=== PATIENT | female | born 1930 | race Two or more races ===

== ENCOUNTER 2016-12-10 12:46 | Inpatient (IN) | payer MEDICARE, OTHER ==
[~2016-12-10] VITALS: Ht 144.8 cm; Wt 59.9 kg
[2016-12-10] MEDS ORDERED: LEXAPRO10 MG ORAL ×2 (13:04→20:51)
[2016-12-10] MEDS ORDERED: LAMICTAL25 MG ORAL ×2 (13:04→20:28)
[2016-12-10] MEDS ORDERED: NORVASC5 MG ORAL (13:04)
[2016-12-10] MEDS ORDERED: FOLIC ACID1 MG ORAL (13:04)
[2016-12-10] MEDS ORDERED: PENLAC6.6 M1 TP (13:04)
[2016-12-10] MEDS ORDERED: LINZESS145 MCG PO (13:06)
[2016-12-10] MEDS ORDERED: PATADAY2.5 ML OP ×2 (13:06→20:55)
[2016-12-10] MEDS ORDERED: MOBIC7.5 MG ORAL (13:06)
[2016-12-10] MEDS ORDERED: NAMENDA XR14 MG PO (13:06)
[2016-12-10] MEDS ORDERED: METOPROLOL TART25 MG ORAL (13:09)
[2016-12-10] MEDS ORDERED: TRAZODONE HCL50 MG ORAL (13:09)
[2016-12-10] MEDS ORDERED: PRAVACHOL20 MG ORAL (13:09)
[2016-12-10] MEDS ORDERED: VITAMIN D350000 UNIT PO (13:09)
[2016-12-10] MEDS ORDERED: PEPCID20 MG ORAL (13:09)
[2016-12-10 13:56] LABS: BASOPHILS % (AUTO) 0.6 % (0.0-2.0); EOSINOPHILS % (AUTO) 0.7 % (0.0-3.0); LYMPHOCYTES % (AUTO) 28.1 % (20.0-45.0); MEAN CORPUSCULAR HEMOGLOBIN 30.2 PG (27.0-31.0); MEAN CORPUSCULAR HGB CONC 33.5 G/DL (32.0-36.0); MEAN CORPUSCULAR VOLUME 90 FL (80-99); MEAN PLATELET VOLUME 9.3 FL (6.5-10.1); MONOCYTES % (AUTO) 6.9 % (1.0-10.0); NEUTROPHILS % (AUTO) 63.6 % (45.0-75.0); PLATELET COUNT 210 K/UL (150-450); RED BLOOD COUNT 5.47 M/UL (4.70-6.10); RED CELL DISTRIBUTION WIDTH 12.2 % (11.6-14.8); WHITE BLOOD COUNT 7.2 K/UL (4.8-10.8)
[2016-12-10 14:12] LABS: ALANINE AMINOTRANSFERASE 21 U/L (3-33); ALBUMIN/GLOBULIN RATIO 1.7 (1.0-2.7); ANION GAP 18 (5-15); ASPARTATE AMINO TRANSFERASE 34 U/L (5-40); CALCIUM 10.1 mg/dL (8.6-10.2); CARBON DIOXIDE 25 mEQ/L (20-30); CHLORIDE 96 mEQ/L (98-107); CREATININE 0.9 mg/dL (0.5-0.9); HEMOLYSIS 14; LIPASE 36 U/L (< 60); POTASSIUM 3.8 mEQ/L (3.4-4.9); SODIUM 139 mEQ/L (135-145); TOTAL PROTEIN 7.4 g/dL (6.6-8.7); TROPONIN I < 0.30 ng/mL (<=0.30)
[2016-12-10 14:13] LABS: INR 0.9 (0.9-1.1); PROTHROMBIN TIME 9.8 SEC (9.30-11.50)
[2016-12-10 14:22] LABS: CKMB 2.9 ng/mL (< 3.8)
--- NOTE | 2016-12-10 14:34 | Diagnostic Imaging Report ---
Indication: PAIN, nausea, vomiting Technique: Spiral acquisitions obtained through the abdomen and pelvis. No oral contrast utilized, per emergency room physician request No IV contrast utilized, Per referring physician request. Multiplanar reconstructions were generated. Total dose length product 680 mGycm. CTDIvol(s) 14 mGy. Dose reduction achieved using automated exposure control Comparison: None Findings: Normal appendix. There is colonic diverticulosis. No evidence of diverticulitis. No small bowel distention. No free or loculated intraperitoneal air or fluid. There are multiple small fat-containing ventral hernias in the midline. There is evidence of prior surgery at the gastroesophageal junction. There is a hiatal hernia and probably evidence of fundoplication. The stomach and duodenum are otherwise unremarkable. Lack of IV contrast limits assessment of the solid organs. The gallbladder is not demonstrated, presumed surgically absent. There is dilatation of the extrahepatic bile ducts, common hepatic duct measuring up to 14 mm in diameter. There is central intrahepatic biliary ductal dilatation. No downstream obstructive lesion is demonstrated, however. The pancreas is mildly atrophic. No focal abnormalities. The left adrenal is diffusely bulky without definite discrete lesion. The right adrenal is unremarkable. The right kidney is unremarkable. No evidence of stone or hydronephrosis. The left kidney demonstrates multiple large cysts. The bladder is mildly distended. No pelvic mass or adenopathy. No retroperitoneal or mesenteric mass or adenopathy. The uterus demonstrates some peripheral calcification, likely old degenerated exophytic fibroids. The lung bases demonstrate bilateral atelectatic changes. The heart is upper limits of normal in size. The bones demonstrate degenerative spondylosis changes as well as lumbar levoscoliotic deformity. There is surgical hardware in the lower lumbosacral spine. Impression: No definite acute process Large hiatal hernia, evidence of prior gastroesophageal surgery, possibly a fundoplication procedure. Correlate with surgical history Dilated extrahepatic bile duct. No definite downstream obstructive lesion demonstrated; suspect related to age and postcholecystectomy state. However, correlation with liver function tests is recommended, with consideration for MRCP for further evaluation if clinically indicated. Diverticulosis. No evidence of diverticulitis Other findings as noted, including evidence of prior lumbar spine fusion surgery, degenerative spondylosis, lumbar scoliosis, bilateral basilar pulmonary parenchymal atelectatic changes, left renal cysts, probable old calcified uterine fibroids The CT scanner at [facility] is accredited by the [employer] and the scans are performed using protocols designed to limit radiation exposure to as low as reasonably achievable to attain images of sufficient resolution adequate for diagnostic evaluation.
--- NOTE | 2016-12-10 14:49 | Emergency Room Report ---
History of Present Illness General Chief Complaint: Generalized Weakness Source: Patient, Medical Record Present Illness HPI Patient presents emergency department today complaining of acute abdominal pain. Patient states that she develop acute onset abdominal discomfort with nausea vomiting or last few days. She's been able to tolerate by mouth. Patient currently stays at a group home. Patient's primary care physician is Dr. Santos. Patient states that she has had severe injuries in the past. Although she does not have a history of bowel traction. She denies any dysuria urinary frequency. No other complaints are noted.No other modifying factors. No other associated signs and symptoms. No other complaints were noted. Allergies: Coded Allergies: No Known Allergies (Unverified , 12/10/16) Patient History Past Medical History: HTN, other - Stomach surgery PSxH Narrative abdominal surgery Social History: Denies: alcohol use, drug use, smoking Social History Narrative stays at a group home Reviewed Nursing Documentation: PMH: Agreed, PSxH: Agreed Nursing Documentation-PMH Past Medical History: No History, Except For Hx Hypertension: Yes History Of Psychiatric Problem: Yes - dementia Review of Systems All Other Systems: negative except mentioned in HPI Physical Exam Vital Signs Date Time Temp Pulse Resp B/P Pulse Ox O2 Delivery O2 Flow Rate FiO2 12/10/16 12:49 98.6 78 20 138/64 96 Room Air Sp02 EP Interpretation: reviewed, normal General Appearance: alert, other - nauseous Head: atraumatic Eyes: bilateral eye normal inspection ENT: normal ENT inspection, hearing grossly normal, normal voice Neck: normal inspection, full range of motion, supple, no bony tend Respiratory: normal inspection, lungs clear, normal breath sounds, no respiratory distress, no retraction, no wheezing Cardiovascular #1: regular rate, rhythm, no edema Gastrointestinal: normal inspection, normal bowel sounds, non tender, soft, no guarding, no hernia Genitourinary: no CVA tenderness Musculoskeletal: normal inspection, back normal, normal range of motion Neurologic: normal inspection, alert, responsive, speech normal Psychiatric: judgement/insight normal, anxious Skin: normal inspection, normal color, no rash Medical Decision Making Diagnostic Impression: Primary Impression: Vomiting Qualified Codes: R11.2 - Nausea with vomiting, unspecified ER Course Given patient's presentation of vomiting I felt that this is a highly complex patient. Differential considerations include bowel traction, electrolyte abnormality, gastroenteritis, dehydration just to name a few.Given the severity of the patient's presentation I felt this is a highly complex patient. This patient required extensive workup. Patient laboratory workup was negative. CT was also normal. However patient was still nauseous despite Zofran and fluids. Therefore felt the patient likely require admission. Case was discussed with Dr. Santos. Patient was placed in observation for treatment. Labs Test 12/10/16 13:00 White Blood Count 7.2 K/UL (4.8-10.8) Red Blood Count 5.47 M/UL (4.70-6.10) Hemoglobin 16.5 G/DL (14.2-18.0) Hematocrit 49.3 % (42.0-52.0) Mean Corpuscular Volume 90 FL (80-99) Mean Corpuscular Hemoglobin 30.2 PG (27.0-31.0) Mean Corpuscular Hemoglobin Concent 33.5 G/DL (32.0-36.0) Red Cell Distribution Width 12.2 % (11.6-14.8) Platelet Count 210 K/UL (150-450) Mean Platelet Volume 9.3 FL (6.5-10.1) Neutrophils (%) (Auto) 63.6 % (45.0-75.0) Lymphocytes (%) (Auto) 28.1 % (20.0-45.0) Monocytes (%) (Auto) 6.9 % (1.0-10.0) Eosinophils (%) (Auto) 0.7 % (0.0-3.0) Basophils (%) (Auto) 0.6 % (0.0-2.0) Prothrombin Time 9.8 SEC (9.30-11.50) Prothromb Time International Ratio 0.9 (0.9-1.1) Activated Partial Thromboplast Time 28 SEC (23-33) Sodium Level 139 mEQ/L (135-145) Potassium Level 3.8 mEQ/L (3.4-4.9) Chloride Level 96 mEQ/L (98-107) Carbon Dioxide Level 25 mEQ/L (20-30) Anion Gap 18 (5-15) Blood Urea Nitrogen 6 mg/dL (7-23) Creatinine 0.9 mg/dL (0.5-0.9) Estimat Glomerular Filtration Rate mL/min (>60) Glucose Level 135 mg/dL (74-106) Calcium Level 10.1 mg/dL (8.6-10.2) Total Bilirubin 0.7 mg/dL (0.0-1.2) Aspartate Amino Transf (AST/SGOT) 34 U/L (5-40) Alanine Aminotransferase (ALT/SGPT) 21 U/L (3-33) Alkaline Phosphatase 66 U/L (35-104) Total Creatine Kinase 174 U/L (26-140) Creatine Kinase MB 2.9 ng/mL (< 3.8) Creatine Kinase MB Relative Index 1.6 Troponin I < 0.30 ng/mL (<=0.30) Total Protein 7.4 g/dL (6.6-8.7) Albumin 4.7 g/dL (3.5-5.2) Globulin 2.7 g/dL Albumin/Globulin Ratio 1.7 (1.0-2.7) Lipase 36 U/L (< 60) EKG Diagnostic Results Rate: normal Rhythm: NSR ST Segments: no acute changes Rhythm Strip Diag. Results EP Interpretation: yes Rate: 65 Rhythm: NSR, no PVC's, no ectopy Last Vital Signs Date Time Temp Pulse Resp B/P Pulse Ox O2 Delivery O2 Flow Rate FiO2 12/10/16 12:49 98.6 78 20 138/64 96 Room Air Status: improved Disposition: PLACE IN OBSERVATION Condition: Serious Referrals: DEIRDRE SANTOS (PCP) JESSICA GUARDADO M.D. Dec 10, 2016 14:49
[2016-12-10 15:06] LABS: APPEARANCE,URINE CLEAR; KETONES,URINE NEGATIVE (NEGATIVE); LEUKOCYTE ESTERASE ,URINE NEGATIVE (NEGATIVE); NITRITE,URINE NEGATIVE (NEGATIVE); PH,URINE 8 (4.5-8.0); PROTEIN,URINE NEGATIVE (NEGATIVE); UROBILINOGEN,URINE NORMAL MG/DL (0.0-1.0)
[2016-12-10 16:28] VITALS: BP 150/71
[2016-12-10] MEDS ORDERED: Acetaminophen 500mg (ES) tab ORAL PRN (17:00)
[2016-12-10] MEDS ORDERED: TraZODone HCl 25 mg tablet ORAL ONE (17:00)
[2016-12-10 18:13] VITALS: BP 134/76
[2016-12-10] MEDS: Metoprolol 25mg tab ORAL SCH (18:35)
[2016-12-10] MEDS: Famotidine 20 MG/ 2ML VIAL IVP SCH (19:01)
[2016-12-10] MEDS: Heparin 5000 units/ml inj SUBQ SCH (19:04)
[2016-12-10] MEDS ORDERED: PRAVACHOL40 MG ORAL (20:34)
[2016-12-10] MEDS ORDERED: TYLENOL EXTRA500 MG ORAL (20:34)
[2016-12-10] MEDS ORDERED: CICLOPIROX15 GM TP (20:55)
[2016-12-10] MEDS ORDERED: [UNRECOGNIZED DRUG - OTHER] TP (20:55)
[2016-12-10] MEDS ORDERED: SLOW PO (20:57)
[2016-12-10 21:10] VITALS: BP 145/61
--- NOTE | 2016-12-10 21:45 | History and Physical Report ---
DATE OF ADMISSION: 12/10/2016 CHIEF COMPLAINT: Nausea and vomiting for few days. HISTORY OF PRESENT ILLNESS: This is an 86-year-old [place] female who was brought in from an assisted living where she resides for complaint of nausea and vomiting for the past few days. The patient has not been able to eat much even though she was on Zofran to prevent nausea and vomiting. She had slight abdominal pain previously. No fever or chills. No shortness of breath or chest pain. In the emergency room, the patient received IV fluids and Zofran, but her nausea did not improve. It was decided to admit the patient for observation and have GI to evaluate the patient. PAST MEDICAL HISTORY: Includes history of hypertension, hyperlipidemia, depression, dementia , constipation, osteoarthritis, and gastroesophageal reflux disease. PAST SURGICAL HISTORY: None except for abdominal surgery. ALLERGIES: No known drug allergies. SOCIAL HISTORY: Denies any alcohol or drug use. FAMILY HISTORY: Noncontributory. REVIEW OF SYSTEMS: Negative except for history of present illness. PHYSICAL EXAMINATION: VITAL SIGNS: Temperature 98.6 degrees, pulse 78, respirations 20, blood pressure 138/64, and pulse oximetry 96% on room air. GENERAL APPEARANCE: The patient is alert and oriented x2. HEENT: Normocephalic and normochromic. Extraocular muscles intact. Throat is clear. NECK: Supple. No lymphadenopathy. LUNGS: Clear to auscultation bilaterally. No wheezing. No rales or rhonchi. CARDIOVASCULAR: Regular rate and rhythm. No murmur. No gallop. GASTROINTESTINAL: Soft, nontender, and nondistended. Positive bowel sounds. No guarding. GENITOURINARY: No CVA tenderness. EXTREMITIES: No edema, cyanosis, or clubbing. NEUROLOGIC: Alert and responsive. No gross motor or sensory deficits. SKIN: No rash. LABORATORY AND DIAGNOSTIC DATA: Include WBC 7.2, hemoglobin 16.5, hematocrit 49.3, platelet count 210,000 neutrophils 63, lymphocytes 28, and monos 6.9. Sodium 139, potassium 3.8, chloride 96, carbon dioxide 25, BUN 6, creatinine 0.9, and glucose 135. Calcium 10.1. AST 34, ALT 21, and alkaline phosphatase 66. Total creatine kinase 174. Troponin less than 0.3. Albumin 4.7 and globulin 2.7. Lipase 36, normal. PT 9.8 , INR 0.9, and PTT 28. UA is negative. CT scan of abdomen and pelvis showed large hiatal hernia. Also diverticulosis and questionable dilated extrahepatic bile duct, lumbar scoliosis, spondylosis, and bilateral basilar pulmonary parenchymal atelectasis. EKG showed normal sinus rhythm. IMPRESSION: 1. This is an 86-year-old [place] female who came in for intractable nausea and vomiting, that did not respond to Zofran as outpatient. The patient will be admitted as observation and will be treated with intravenous fluids and Zofran and have a Gastroenterology would consult for nausea and vomiting. 2. Hypertension. We will continue home medications. 3. Hyperlipidemia. We will hold Pravachol for now. 4. Depression. We will continue home medications. 5. Dementia. We will continue Namenda 10 mg daily. Andrew Santos M.D. DR: Manuela JOB#: [id number] CC: FERMÍN
[2016-12-10 22:36] VITALS: BP 144/97
[2016-12-11] VITALS (7 sets, daily range): BP systolic 109–156; BP diastolic 76–97
[2016-12-11 07:08] LABS: BASOPHILS % (AUTO) 0.7 % (0.0-2.0); EOSINOPHILS % (AUTO) 1.4 % (0.0-3.0); LYMPHOCYTES % (AUTO) 33.9 % (20.0-45.0); MEAN CORPUSCULAR HEMOGLOBIN 31.6 PG (27.0-31.0); MEAN CORPUSCULAR HGB CONC 34.8 G/DL (32.0-36.0); MEAN CORPUSCULAR VOLUME 91 FL (80-99); MONOCYTES % (AUTO) 8.3 % (1.0-10.0); NEUTROPHILS % (AUTO) 55.7 % (45.0-75.0); PLATELET COUNT 193 K/UL (150-450); RED BLOOD COUNT 5.11 M/UL (4.20-5.40); RED CELL DISTRIBUTION WIDTH 12.2 % (11.6-14.8); WHITE BLOOD COUNT 8.2 K/UL (4.8-10.8)
[2016-12-11 07:30] LABS: ANION GAP 17 (5-15); CALCIUM 9.3 mg/dL (8.6-10.2); CARBON DIOXIDE 24 mEQ/L (20-30); CHLORIDE 100 mEQ/L (98-107); CREATININE 0.9 mg/dL (0.5-0.9); HEMOLYSIS 29; POTASSIUM 3.8 mEQ/L (3.4-4.9); SODIUM 141 mEQ/L (135-145)
--- NOTE | 2016-12-11 09:14 | General Progress Note ---
Assessment/Plan Status: stable Assessment/Plan 1. Nausea - CT of Abd showed slight bile duct enlargement - will has GI see the patient today. cont Zofran and IVF for now. 2. HTN - cont home meds 3. Depression - cont home meds. 4. Dementia - cont home meds. Subjective Date patient seen: Dec 11, 2016 Time patient seen: 08:50 Constitutional: Reports: no symptoms HEENT: Reports: no symptoms Cardiovascular: Reports: no symptoms Respiratory: Reports: no symptoms Gastrointestinal/Abdominal: Reports: nausea Genitourinary: Reports: no symptoms Neurologic/Psychiatric: Reports: no symptoms Endocrine: Reports: no symptoms Hematologic/Lymphatic: Reports: no symptoms Allergies: Coded Allergies: No Known Allergies (Unverified , 12/10/16) Subjective This morning she still c/o nausea even with taking zofran 4 mg q 4 hrs. she was able to eat slightly this morning according to her nurse. afebrile. Objective Last 24 Hour Vital Signs Date Time Temp Pulse Resp B/P Pulse Ox O2 Delivery O2 Flow Rate FiO2 12/11/16 08:00 97.9 68 18 142/79 96 Room Air 12/11/16 03:54 97.7 71 18 109/78 Room Air 12/11/16 00:01 61 144/97 12/11/16 00:00 97.9 62 17 148/83 96 Room Air 12/10/16 22:36 98.8 61 18 144/97 96 Room Air 12/10/16 21:22 99.0 63 19 145/61 99 Room Air 12/10/16 21:10 99.0 63 19 145/61 99 Room Air 12/10/16 18:35 84 154/96 12/10/16 18:13 97.1 84 16 134/76 97 Room Air 12/10/16 16:28 98.9 90 18 150/71 99 Room Air 12/10/16 12:49 98.6 78 20 138/64 96 Room Air Intake and Output 12/10/16 12/11/16 19:00 07:00 Intake Total 540 ml Output Total 800 ml Balance -800 ml 540 ml Intake Oral 240 ml IV Total 300 ml Output Urine Total 800 ml # Voids 1 Laboratory Tests 12/10/16 13:00: White Blood Count 7.2, Red Blood Count 5.47, Hemoglobin 16.5, Hematocrit 49.3, Mean Corpuscular Volume 90, Mean Corpuscular Hemoglobin 30.2, Mean Corpuscular Hemoglobin Concent 33.5, Red Cell Distribution Width 12.2, Platelet Count 210, Mean Platelet Volume 9.3, Neutrophils (%) (Auto) 63.6, Lymphocytes (%) (Auto) 28.1, Monocytes (%) (Auto) 6.9, Eosinophils (%) (Auto) 0.7, Basophils (%) (Auto ) 0.6, Prothrombin Time 9.8, Prothromb Time International Ratio 0.9, Activated Partial Thromboplast Time 28, Sodium Level 139, Potassium Level 3.8, Chloride Level 96L, Carbon Dioxide Level 25, Anion Gap 18H, Blood Urea Nitrogen 6L, Creatinine 0.9, Estimat Glomerular Filtration Rate , Glucose Level 135H, Calcium Level 10.1, Total Bilirubin 0.7, Aspartate Amino Transf (AST/SGOT) 34, Alanine Aminotransferase (ALT/SGPT) 21, Alkaline Phosphatase 66, Total Creatine Kinase 174H, Creatine Kinase MB 2.9, Creatine Kinase MB Relative Index 1.6, Troponin I < 0.30, Total Protein 7.4, Albumin 4.7, Globulin 2.7, Albumin/ Globulin Ratio 1.7, Lipase 36 12/10/16 14:40: Urine Color Pale yellow, Urine Appearance Clear, Urine pH 8, Urine Specific [place] 1.010, Urine Protein Negative, Urine Glucose (UA) Negative, Urine Ketones Negative, Urine Occult Blood Negative, Urine Nitrite Negative, Urine Bilirubin Negative, Urine Urobilinogen Normal, Urine Leukocyte Esterase Negative 12/11/16 05:20: White Blood Count 8.2, Red Blood Count 5.11, Hemoglobin 16.1H, Hematocrit 46.4, Mean Corpuscular Volume 91, Mean Corpuscular Hemoglobin 31.6H, Mean Corpuscular Hemoglobin Concent 34.8, Red Cell Distribution Width 12.2, Platelet Count 193, Mean Platelet Volume 9.0, Neutrophils (%) (Auto) 55.7, Lymphocytes (%) (Auto) 33.9, Monocytes (%) (Auto) 8.3, Eosinophils (%) (Auto) 1.4, Basophils (%) (Auto ) 0.7, Sodium Level 141, Potassium Level 3.8, Chloride Level 100, Carbon Dioxide Level 24, Anion Gap 17H, Blood Urea Nitrogen 6L, Creatinine 0.9, Estimat Glomerular Filtration Rate , Glucose Level 107H, Calcium Level 9.3 Height (Feet): 4 Height (Inches): 11.00 Weight (Pounds): 130 General Appearance: no apparent distress, alert Neck: non-tender, normal alignment, supple Cardiovascular: normal peripheral pulses, normal rate, regular rhythm Respiratory/Chest: chest wall non-tender, lungs clear Abdomen: normal bowel sounds, non tender, soft Extremities: normal range of motion, non-tender Edema: no edema noted Arm (L), no edema noted Arm (R), no edema noted Leg (L), no edema noted Leg (R), no edema noted Pedal (L), no edema noted Pedal (R), no edema noted Generalized Neurologic: alert, responsive Skin: warm/dry Lymphatic: normal anterior cervical (L), normal anterior cervical (R), normal axillary (L), normal axillary (R), normal inguinal (L), normal inguinal (R), normal other, normal posterior cervical (L), normal posterior cervical (R), normal submandibular (L), normal submandibular (R), normal supraclavicular (L), normal supraclavicular (R) DEIRDRE ARMENDARIZ Dec 11, 2016 09:14
[2016-12-11] MEDS: Memantine 10mg tab ORAL SCH (09:54)
[2016-12-11] MEDS: Metoprolol 25mg tab ORAL SCH ×2 (09:54→21:11)
[2016-12-11] MEDS: Heparin 5000 units/ml inj SUBQ SCH ×2 (09:57→21:14)
--- NOTE | 2016-12-11 14:59 | GI Initial Consult Note ---
BroderickAiram Kvng N.P. 12/11/16 1459: History of Present Illness General Date patient seen: Dec 11, 2016 Time patient seen: 11:00 Reason for Hospitalization: Generalized Weakness Referring physician: DEIRDRE BAPTISTE Reason for Consultation: Hepatic Biliary Ductal Dilation Present Illness HPI Patient presents emergency department today complaining of acute abdominal pain. Patient states that she develop acute onset abdominal discomfort with nausea vomiting or last few days. She's been able to tolerate by mouth. Patient currently stays at a [facility]. Patient's primary care physician is Dr. Santos. Patient states that she has had severe injuries in the past. Although she does not have a history of bowel traction. She denies any dysuria urinary frequency. No other complaints are noted.No other modifying factors. No other associated signs and symptoms. No other complaints were noted. GI Consult. HPI as noted above. GI consulted for acute abdominal pain and hepatic biliary ductal dilation shown on recent APCT. ROS limited, pt with hx of dementia, seen on floor, awake A&Ox2 NAD with no active s/sx N/V/D. Patient states she hasn't had a bowel movement for over a week. Denies any abdominal pain at this time. Abdomen soft, non distended, non tender. APCT reviews history of abdominal surgery most likely fundoplication and spinal hardware. Unknown history of endoscopic procedures. Home Meds Reported Medications Ferrous Sulfate (SLOW RELEASE IRON) 47.5 Mg Tablet.er, 47.5 MG PO DAILY 12/10/16 Acetic Acid/Resor/Khanh Acid (FUNGI-NAIL TINCTURE) 30 Ml Tincture, 30 ML TP BID 12/10/16 Ciclopirox Olamine* (LOPROX*) 15 Gm Cream..g., 15 GM TP BID 12/10/16 Escitalopram Oxalate* (LEXAPRO*) 10 Mg Tablet, 15 MG ORAL BEDTIME 12/10/16 Acetaminophen* (TYLENOL EXTRA STRENGTH*) 500 Mg Tablet, 500 MG ORAL Q6H Y for Fever/Headache/Mild Pain 12/10/16 Pravastatin Sodium (PRAVACHOL) 40 Mg Tablet, 40 MG ORAL DAILY 12/10/16 Lamotrigine* (LAMICTAL*) 25 Mg Tablet, 50 MG ORAL BEDTIME 12/10/16 Metoprolol Tartrate* (METOPROLOL TARTRATE*) 25 Mg Tablet, 25 MG ORAL EVERY 12 HOURS, TAB 12/10/16 Famotidine (PEPCID) 20 Mg Tablet, 20 MG ORAL BID, #7 TAB 0 Refills 12/10/16 Cholecalciferol (Vitamin D3) (VITAMIN D3) 50,000 Unit Capsule, 97467 UNIT PO ONCE A WEEK, CAP 12/10/16 Trazodone Hcl* (DESYREL*) 50 Mg Tablet, 50 MG ORAL BEDTIME, TAB 12/10/16 Olopatadine Hcl (PATADAY) 2.5 Ml Drops, 2.5 ML OP, ML 12/10/16 Memantine Hcl (NAMENDA XR) 14 Mg Cap.spr.24, 14 MG PO DAILY, CAP 12/10/16 Meloxicam* (MOBIC*) 7.5 Mg Tablet, 7.5 MG ORAL DAILY, #30 TAB 0 Refills 12/10/16 Linaclotide (LINZESS) 145 Mcg Capsule, 145 MCG PO AC, CAP 12/10/16 Folic Acid* (FOLIC ACID*) 1 Mg Tablet, 1 MG ORAL DAILY, TAB 12/10/16 Ciclopirox (PENLAC) 6.6 Ml Solution, 6.6 ML TP BEDTIME 12/10/16 Amlodipine Besylate (Norvasc) 5 Mg Tablet, 5 MG ORAL DAILY, TAB 12/10/16 Med list reviewed/reconciled: Yes Allergies: Coded Allergies: No Known Allergies (Unverified , 12/10/16) Patient History Limited by: medical condition History Provided By: Medical Record PMH Narrative Past Medical History: HTN, other - Stomach surgery PSxH Narrative abdominal surgery Social History: Denies: alcohol use, drug use, smoking Social History Narrative stays at a [facility] Reviewed Nursing Documentation: PMH: Agreed, PSxH: Agreed Nursing Documentation-PMH Past Medical History: No History, Except For Hx Hypertension: Yes History Of Psychiatric Problem: Yes - dementia Social History: Denies: alcohol use, drug use, other, smoking Review of Systems All Other Systems: limited Physical Exam Vital Signs Date Time Temp Pulse Resp B/P Pulse Ox O2 Delivery O2 Flow Rate FiO2 12/10/16 12:49 98.6 78 20 138/64 96 Room Air Sp02 EP Interpretation: reviewed Labs Laboratory Tests Test 12/11/16 05:20 White Blood Count 8.2 K/UL (4.8-10.8) Red Blood Count 5.11 M/UL (4.20-5.40) Hemoglobin 16.1 G/DL (12.0-16.0) H Hematocrit 46.4 % (37.0-47.0) Mean Corpuscular Volume 91 FL (80-99) Mean Corpuscular Hemoglobin 31.6 PG (27.0-31.0) H Mean Corpuscular Hemoglobin Concent 34.8 G/DL (32.0-36.0) Red Cell Distribution Width 12.2 % (11.6-14.8) Platelet Count 193 K/UL (150-450) Mean Platelet Volume 9.0 FL (6.5-10.1) Neutrophils (%) (Auto) 55.7 % (45.0-75.0) Lymphocytes (%) (Auto) 33.9 % (20.0-45.0) Monocytes (%) (Auto) 8.3 % (1.0-10.0) Eosinophils (%) (Auto) 1.4 % (0.0-3.0) Basophils (%) (Auto) 0.7 % (0.0-2.0) Sodium Level 141 mEQ/L (135-145) Potassium Level 3.8 mEQ/L (3.4-4.9) Chloride Level 100 mEQ/L (98-107) Carbon Dioxide Level 24 mEQ/L (20-30) Anion Gap 17 (5-15) H Blood Urea Nitrogen 6 mg/dL (7-23) L Creatinine 0.9 mg/dL (0.5-0.9) Estimat Glomerular Filtration Rate mL/min (>60) Glucose Level 107 mg/dL (74-106) H Calcium Level 9.3 mg/dL (8.6-10.2) General Appearance: well appearing, no apparent distress, alert Head: normocephalic EENT: normal ENT inspection Neck: supple Respiratory: normal breath sounds, no retraction Cardiovascular: normal rate Gastrointestinal: normal inspection, non tender, soft Rectal: deferred Musculoskeletal: back normal Neurologic: alert, oriented x3, responsive Psychiatric: normal inspection, judgement/insight normal, memory normal Skin: normal inspection, normal color, no rash, warm/dry Lymphatic: normal inspection, no adenopathy Current Medications Current Medications Medications (Trade) Dose Ordered Sig/Laxmi Route PRN Reason Start Time Stop Time Status Last Admin Dose Admin Acetaminophen (Tylenol) 650 mg Q6H PRN ORAL pain or fever 12/10/16 17:00 01/09/17 16:59 Dextrose (Dextrose 50%) STAT PRN IV Hypoglycemia 12/10/16 16:30 01/09/17 16:29 Escitalopram Oxalate (Lexapro) 15 mg DAILY ORAL 12/11/16 09:00 01/10/17 08:59 12/11/16 09:54 Famotidine (Pepcid I.v.) 20 mg Q24H IVP 12/10/16 21:00 01/09/17 20:59 12/10/16 19:01 Folic Acid (Folate) 1 mg DAILY ORAL 12/11/16 09:00 01/10/17 08:59 12/11/16 09:54 Heparin Sodium (Porcine) (Heparin 5000 units/ml) 5,000 units EVERY 12 HOURS SUBQ 12/10/16 21:00 01/09/17 20:59 12/11/16 09:57 Lamotrigine (LaMICtal) 50 mg DAILY ORAL 12/11/16 09:00 01/10/17 08:59 12/11/16 09:54 Meloxicam (Mobic) 7.5 mg DAILYPRN PRN ORAL Pain unrelieved by Tylenol 12/10/16 17:00 01/09/17 16:59 Memantine (Namenda) 10 mg DAILY ORAL 12/11/16 09:00 01/10/17 08:59 12/11/16 09:54 Metoprolol Tartrate (Lopressor) 25 mg Q12HR ORAL 12/10/16 21:00 01/09/17 20:59 12/11/16 09:54 Ondansetron HCl (Zofran) 4 mg Q4H PRN IVP Nausea & Vomiting 12/10/16 16:30 01/09/17 16:29 12/11/16 09:54 Sodium Chloride (Sodium Chloride 1000ml bag) 1,000 ml @ 50 mls/hr Q20H IVLG 12/10/16 17:28 01/09/17 17:27 12/11/16 00:01 GI: Plan Problems: (1) GERD (gastroesophageal reflux disease) (2) Constipation (3) S/P laparoscopic fundoplication (4) Abdominal pain (5) Vomiting Plan APCT reviewed >> No definite acute process. Dilated extrahepatic bile duct. No definite downstream obstructive lesion demonstrated; suspect related to age and postcholecystectomy state. lipase WNL symptomatic treatment zofran prn, consider reglan if patient has persistent vomiting bowel regime >> colace + miralax ordered MRCP to evaluate common hepatic duct measuring up to 14 mm in diameter. H2B ordered CA19-[address] fu labs [address] Marin. Thank you for referring this patient, we will follow. MUMTAZ MARIN 12/12/16 1123: History of Present Illness General Reason for Hospitalization: Generalized Weakness Present Illness Home Meds Reported Medications Ferrous Sulfate (SLOW RELEASE IRON) 47.5 Mg Tablet.er, 47.5 MG PO DAILY 12/10/16 Acetic Acid/Resor/Khanh Acid (FUNGI-NAIL TINCTURE) 30 Ml Tincture, 30 ML TP BID 12/10/16 Ciclopirox Olamine* (LOPROX*) 15 Gm Cream..g., 15 GM TP BID 12/10/16 Escitalopram Oxalate* (LEXAPRO*) 10 Mg Tablet, 15 MG ORAL BEDTIME 12/10/16 Acetaminophen* (TYLENOL EXTRA STRENGTH*) 500 Mg Tablet, 500 MG ORAL Q6H Y for Fever/Headache/Mild Pain 12/10/16 Pravastatin Sodium (PRAVACHOL) 40 Mg Tablet, 40 MG ORAL DAILY 12/10/16 Lamotrigine* (LAMICTAL*) 25 Mg Tablet, 50 MG ORAL BEDTIME 12/10/16 Metoprolol Tartrate* (METOPROLOL TARTRATE*) 25 Mg Tablet, 25 MG ORAL EVERY 12 HOURS, TAB 12/10/16 Famotidine (PEPCID) 20 Mg Tablet, 20 MG ORAL BID, #7 TAB 0 Refills 12/10/16 Cholecalciferol (Vitamin D3) (VITAMIN D3) 50,000 Unit Capsule, 99588 UNIT PO ONCE A WEEK, CAP 12/10/16 Trazodone Hcl* (DESYREL*) 50 Mg Tablet, 50 MG ORAL BEDTIME, TAB 12/10/16 Olopatadine Hcl (PATADAY) 2.5 Ml Drops, 2.5 ML OP, ML 12/10/16 Memantine Hcl (NAMENDA XR) 14 Mg Cap.spr.24, 14 MG PO DAILY, CAP 12/10/16 Meloxicam* (MOBIC*) 7.5 Mg Tablet, 7.5 MG ORAL DAILY, #30 TAB 0 Refills 12/10/16 Linaclotide (LINZESS) 145 Mcg Capsule, 145 MCG PO AC, CAP 12/10/16 Folic Acid* (FOLIC ACID*) 1 Mg Tablet, 1 MG ORAL DAILY, TAB 12/10/16 Ciclopirox (PENLAC) 6.6 Ml Solution, 6.6 ML TP BEDTIME 12/10/16 Amlodipine Besylate (Norvasc) 5 Mg Tablet, 5 MG ORAL DAILY, TAB 12/10/16 Allergies: Coded Allergies: No Known Allergies (Unverified , 12/10/16) GI: Plan Plan The patient was seen and examined at bedside and all new and available data was reviewed in the patients chart. I agree with the above findings, impression and plan. (Patient seen earlier today. Signature stamp does not reflect patient encounter time.). -Mumtaz BroderickBanner Kvng NHood Dec 11, 2016 14:59 MUMTAZ MARIN Dec 12, 2016 11:23
--- NOTE | 2016-12-11 15:11 | Diagnostic Imaging Report ---
Indications: Pelvic pain, nausea and vomiting, bile duct dilation on abdominopelvic CT scan Technique: Coronal and axial T2-weighted single shot fast spin-echo breath-hold and lava Flex, coronal and coronal oblique 2-D thick slab MRCP, axial 2-D fiesta fat sat, T2-weighted fat-saturated fast spin-echo, and dual echo spoiled gradient breath-hold sequences of the abdomen performed without IV gadolinium administration. Findings: Comparison: CT abdomen pelvis 12/10/16 Marked diffuse dilation of intrahepatic and extra hepatic bile ducts, cystic duct remnant, main and accessory pancreatic ducts again noted to level of ampulla of Vater. Margin of the apparent obstruction blunted. Common bile duct measures up to 18 mm diameter. No intraluminal stone or associated mass identified. Gallbladder absent. Circumscribed fluid signal masses emanating exophytically from renal cortex, largest lower pole 7 cm. Hepatic and pancreatic parenchyma, spleen, adrenal glands, right kidney, remainder visualized abdominal anatomy unremarkable. Multiple small fat-containing ventral hernias. Multilevel disc space narrowing with marginal osteophyte formation in lumbar, lower thoracic spine. Mild S-shaped scoliosis. Fusion hardware in lower lumbar spine. IMPRESSION: Diffuse biliary and pancreatic duct dilation with level of apparent obstruction at ampulla of Vater, without associated stone or mass. Chronic inflammatory stricture must be considered. The colon neoplasm not excludable. ERCP and endoscopic ultrasound recommended for further evaluation. Previous cholecystectomy Left renal cortical cysts Degenerative spondylosis and scoliosis Previous lumbar fusion Multiple fat-containing ventral hernias
[2016-12-11] MEDS: Docusate 100mg cap ORAL SCH (17:25)
[2016-12-11] MEDS: Famotidine 20 MG/ 2ML VIAL IVP SCH (21:11)
[2016-12-12 04:20] VITALS: BP 144/92
[2016-12-12 06:01] LABS: BASOPHILS % (AUTO) 0.7 % (0.0-2.0); EOSINOPHILS % (AUTO) 0.3 % (0.0-3.0); LYMPHOCYTES % (AUTO) 28.6 % (20.0-45.0); MEAN CORPUSCULAR HEMOGLOBIN 31.1 PG (27.0-31.0); MEAN CORPUSCULAR VOLUME 92 FL (80-99); MEAN PLATELET VOLUME 9.5 FL (6.5-10.1); MONOCYTES % (AUTO) 5.5 % (1.0-10.0); NEUTROPHILS % (AUTO) 64.9 % (45.0-75.0); PLATELET COUNT 194 K/UL (150-450); RED BLOOD COUNT 5.05 M/UL (4.20-5.40); RED CELL DISTRIBUTION WIDTH 12.4 % (11.6-14.8); WHITE BLOOD COUNT 7.9 K/UL (4.8-10.8)
[2016-12-12 06:36] LABS: ALANINE AMINOTRANSFERASE 20 U/L (3-33); ALBUMIN/GLOBULIN RATIO 1.6 (1.0-2.7); ANION GAP 15 (5-15); ASPARTATE AMINO TRANSFERASE 40 U/L (5-40); CALCIUM 9.6 mg/dL (8.6-10.2); CARBON DIOXIDE 26 mEQ/L (20-30); CHLORIDE 98 mEQ/L (98-107); CREATININE 0.9 mg/dL (0.5-0.9); HEMOLYSIS 10; SODIUM 139 mEQ/L (135-145); TOTAL PROTEIN 6.8 g/dL (6.6-8.7)
[2016-12-12 08:00] VITALS: BP 135/77
[2016-12-12] MEDS: Docusate 100mg cap ORAL SCH ×3 (08:23→18:17)
[2016-12-12] MEDS: Metoprolol 25mg tab ORAL SCH ×2 (08:23→22:11)
[2016-12-12] MEDS: Heparin 5000 units/ml inj SUBQ SCH ×2 (08:24→21:00)
[2016-12-12] MEDS: Memantine 10mg tab ORAL SCH (08:24)
--- NOTE | 2016-12-12 08:55 | General Progress Note ---
Assessment/Plan Status: stable Assessment/Plan 1. Nausea with enlarged bile and pancreatic duct - GI will plan for ERCP. cont Zofran PRN. 2. HTN - cont home meds 3. Depression - cont home meds. 4. Dementia - cont home meds. Subjective Date patient seen: Dec 12, 2016 Time patient seen: 08:30 Constitutional: Reports: no symptoms HEENT: Reports: no symptoms Cardiovascular: Reports: no symptoms Respiratory: Reports: no symptoms Gastrointestinal/Abdominal: Reports: nausea Genitourinary: Reports: no symptoms Neurologic/Psychiatric: Reports: no symptoms Endocrine: Reports: no symptoms Hematologic/Lymphatic: Reports: no symptoms Allergies: Coded Allergies: No Known Allergies (Unverified , 12/10/16) Subjective This morning she still c/o nausea. Her MRI of Abd showed stricture but no mass over pancreatic ducts. Discussed with patient's daughter and she wants to proceed with ERCP to try to diagnose her. she was able to eat slightly this morning according to her nurse. afebrile. Objective Last 24 Hour Vital Signs Date Time Temp Pulse Resp B/P Pulse Ox O2 Delivery O2 Flow Rate FiO2 12/12/16 08:23 97 137/85 12/12/16 04:20 97.5 65 18 144/92 95 Room Air 12/11/16 23:54 97.7 69 17 115/76 93 Room Air 12/11/16 21:11 72 131/83 12/11/16 19:37 98.2 72 18 131/83 93 Room Air 12/11/16 15:50 98.1 87 19 156/97 98 Room Air 12/11/16 11:44 98.2 65 18 124/88 95 Room Air 12/11/16 09:54 68 142/79 Intake and Output 12/11/16 12/12/16 19:00 07:00 Intake Total 1080 ml 525 ml Balance 1080 ml 525 ml Intake Oral 480 ml IV Total 600 ml 525 ml # Voids 4 Laboratory Tests 12/12/16 04:50: White Blood Count 7.9, Red Blood Count 5.05, Hemoglobin 15.7, Hematocrit 46.3, Mean Corpuscular Volume 92, Mean Corpuscular Hemoglobin 31.1H, Mean Corpuscular Hemoglobin Concent 34.0, Red Cell Distribution Width 12.4, Platelet Count 194, Mean Platelet Volume 9.5, Neutrophils (%) (Auto) 64.9, Lymphocytes (%) (Auto) 28.6, Monocytes (%) (Auto) 5.5, Eosinophils (%) (Auto) 0.3, Basophils (%) (Auto ) 0.7, Sodium Level 139, Potassium Level 4.0, Chloride Level 98, Carbon Dioxide Level 26, Anion Gap 15, Blood Urea Nitrogen 9, Creatinine 0.9, Estimat Glomerular Filtration Rate , Glucose Level 137H, Calcium Level 9.6, Total Bilirubin 0.9, Aspartate Amino Transf (AST/SGOT) 40, Alanine Aminotransferase ( ALT/SGPT) 20, Alkaline Phosphatase 62, Total Protein 6.8, Albumin 4.2, Globulin 2.6, Albumin/Globulin Ratio 1.6, CA 19-9 Antigen 50.75H Height (Feet): 4 Height (Inches): 11.00 Weight (Pounds): 130 General Appearance: no apparent distress, alert Neck: non-tender, normal alignment, supple Cardiovascular: normal peripheral pulses, normal rate, regular rhythm Respiratory/Chest: chest wall non-tender, lungs clear, normal breath sounds Abdomen: normal bowel sounds, non tender, soft Extremities: normal range of motion, non-tender Edema: no edema noted Arm (L), no edema noted Arm (R), no edema noted Leg (L), no edema noted Leg (R), no edema noted Pedal (L), no edema noted Pedal (R), no edema noted Generalized Neurologic: no motor/sensory deficits, alert, responsive Skin: warm/dry Lymphatic: normal anterior cervical (L), normal anterior cervical (R), normal axillary (L), normal axillary (R), normal inguinal (L), normal inguinal (R), normal other, normal posterior cervical (L), normal posterior cervical (R), normal submandibular (L), normal submandibular (R), normal supraclavicular (L), normal supraclavicular (R) DEIRDRE ARMENDARIZ Dec 12, 2016 08:55
[2016-12-12 12:00] VITALS: BP 144/62
--- NOTE | 2016-12-12 13:12 | GI Progress Note ---
Assessment/Plan Problems: (1) S/P laparoscopic fundoplication ICD Codes: Z98.890 - Other specified postprocedural states SNOMED: 27283898, 96995380, 273383353 (2) Vomiting ICD Codes: R11.10 - Vomiting, unspecified SNOMED: 441050490 Qualifiers: Qualified Codes: R11.2 - Nausea with vomiting, unspecified (3) Abdominal pain ICD Codes: R10.9 - Unspecified abdominal pain SNOMED: 28416717 (4) GERD (gastroesophageal reflux disease) ICD Codes: K21.9 - Gastro-esophageal reflux disease without esophagitis SNOMED: 037574510 (5) Constipation ICD Codes: K59.00 - Constipation, unspecified SNOMED: 03363237 Status: stable Status Narrative Discussed with Dr. Burton. Assessment/Plan APCT reviewed >> No definite acute process. Dilated extrahepatic bile duct. No definite downstream obstructive lesion demonstrated; suspect related to age and postcholecystectomy state. MRCP reviewed >> Diffuse biliary and pancreatic duct dilation with level of apparent obstruction at ampulla of Vater, without associated stone or mass. lipase WNL elevated CA19-9 ok for DC per GI standpoint, will schedule ERCP as outpatient symptomatic treatment zofran prn, consider reglan if patient has persistent vomiting bowel regime >> colace + miralax H2B fu labs Subjective Subjective limited, AMS no BM x 1 week denies abdominal pain Objective Last 24 Hour Vital Signs Date Time Temp Pulse Resp B/P Pulse Ox O2 Delivery O2 Flow Rate FiO2 12/12/16 08:23 97 137/85 12/12/16 08:00 97.9 61 18 135/77 95 Room Air 12/12/16 04:20 97.5 65 18 144/92 95 Room Air 12/11/16 23:54 97.7 69 17 115/76 93 Room Air 12/11/16 21:11 72 131/83 12/11/16 19:37 98.2 72 18 131/83 93 Room Air 12/11/16 15:50 98.1 87 19 156/97 98 Room Air Intake and Output 12/11/16 12/12/16 19:00 07:00 Intake Total 1080 ml 525 ml Balance 1080 ml 525 ml Intake Oral 480 ml IV Total 600 ml 525 ml # Voids 4 Laboratory Tests Test 12/12/16 04:50 White Blood Count 7.9 K/UL (4.8-10.8) Red Blood Count 5.05 M/UL (4.20-5.40) Hemoglobin 15.7 G/DL (12.0-16.0) Hematocrit 46.3 % (37.0-47.0) Mean Corpuscular Volume 92 FL (80-99) Mean Corpuscular Hemoglobin 31.1 PG (27.0-31.0) H Mean Corpuscular Hemoglobin Concent 34.0 G/DL (32.0-36.0) Red Cell Distribution Width 12.4 % (11.6-14.8) Platelet Count 194 K/UL (150-450) Mean Platelet Volume 9.5 FL (6.5-10.1) Neutrophils (%) (Auto) 64.9 % (45.0-75.0) Lymphocytes (%) (Auto) 28.6 % (20.0-45.0) Monocytes (%) (Auto) 5.5 % (1.0-10.0) Eosinophils (%) (Auto) 0.3 % (0.0-3.0) Basophils (%) (Auto) 0.7 % (0.0-2.0) Sodium Level 139 mEQ/L (135-145) Potassium Level 4.0 mEQ/L (3.4-4.9) Chloride Level 98 mEQ/L (98-107) Carbon Dioxide Level 26 mEQ/L (20-30) Anion Gap 15 (5-15) Blood Urea Nitrogen 9 mg/dL (7-23) Creatinine 0.9 mg/dL (0.5-0.9) Estimat Glomerular Filtration Rate mL/min (>60) Glucose Level 137 mg/dL (74-106) H Calcium Level 9.6 mg/dL (8.6-10.2) Total Bilirubin 0.9 mg/dL (0.0-1.2) Aspartate Amino Transf (AST/SGOT) 40 U/L (5-40) Alanine Aminotransferase (ALT/SGPT) 20 U/L (3-33) Alkaline Phosphatase 62 U/L (35-104) Total Protein 6.8 g/dL (6.6-8.7) Albumin 4.2 g/dL (3.5-5.2) Globulin 2.6 g/dL Albumin/Globulin Ratio 1.6 (1.0-2.7) CA 19-9 Antigen 50.75 U/mL (< 37) H Height (Feet): 4 Height (Inches): 11.00 Weight (Pounds): 130 General Appearance: no apparent distress, alert Cardiovascular: normal rate Respiratory/Chest: normal breath sounds, no respiratory distress Abdominal Exam: normal bowel sounds, non tender, soft Extremities: normal range of motion Airam Broderick N.P. Dec 12, 2016 13:12
[2016-12-12 16:30] VITALS: BP 153/94
[2016-12-12 20:00] VITALS: BP 149/85
[2016-12-12] MEDS: Famotidine 20 MG/ 2ML VIAL IVP SCH (22:11)
[2016-12-12 23:56] VITALS: BP 136/78
[2016-12-13 03:47] VITALS: BP 140/82
[2016-12-13 07:47] LABS: BASOPHILS % (AUTO) 0.6 % (0.0-2.0); EOSINOPHILS % (AUTO) 0.9 % (0.0-3.0); MEAN CORPUSCULAR HEMOGLOBIN 30.7 PG (27.0-31.0); MEAN CORPUSCULAR HGB CONC 33.8 G/DL (32.0-36.0); MEAN CORPUSCULAR VOLUME 91 FL (80-99); MONOCYTES % (AUTO) 8.1 % (1.0-10.0); NEUTROPHILS % (AUTO) 58.4 % (45.0-75.0); PLATELET COUNT 181 K/UL (150-450); RED BLOOD COUNT 4.83 M/UL (4.20-5.40); RED CELL DISTRIBUTION WIDTH 12.2 % (11.6-14.8); WHITE BLOOD COUNT 7.6 K/UL (4.8-10.8)
[2016-12-13 08:00] VITALS: BP 133/76
[2016-12-13 08:04] LABS: ANION GAP 15 (5-15); CALCIUM 9.2 mg/dL (8.6-10.2); CARBON DIOXIDE 26 mEQ/L (20-30); CHLORIDE 98 mEQ/L (98-107); CREATININE 0.8 mg/dL (0.5-0.9); HEMOLYSIS 8; POTASSIUM 3.5 mEQ/L (3.4-4.9); SODIUM 139 mEQ/L (135-145)
--- NOTE | 2016-12-13 08:11 | General Progress Note ---
Assessment/Plan Problem List: (1) dilated CBD and PD (2) elevayed CA 19-9 (3) Constipation ICD Codes: K59.00 - Constipation, unspecified SNOMED: 96881274 (4) GERD (gastroesophageal reflux disease) ICD Codes: K21.9 - Gastro-esophageal reflux disease without esophagitis SNOMED: 581780777 (5) Abdominal pain ICD Codes: R10.9 - Unspecified abdominal pain SNOMED: 08966576 (6) Vomiting ICD Codes: R11.10 - Vomiting, unspecified SNOMED: 169899126 Qualifiers: Qualified Codes: R11.2 - Nausea with vomiting, unspecified (7) S/P laparoscopic fundoplication ICD Codes: Z98.890 - Other specified postprocedural states SNOMED: 16460961, 46186096, 658919462 Assessment/Plan plan EGD/EUS on Thursday Subjective ROS Limited/Unobtainable: Yes Allergies: Coded Allergies: No Known Allergies (Unverified , 12/10/16) All Systems: reviewed and negative except above Objective Last 24 Hour Vital Signs Date Time Temp Pulse Resp B/P Pulse Ox O2 Delivery O2 Flow Rate FiO2 12/13/16 03:47 98.4 71 17 140/82 95 Room Air 12/12/16 23:56 97.9 66 19 136/78 94 Room Air 12/12/16 22:11 77 153/94 12/12/16 20:00 98.5 75 18 149/85 94 Room Air 12/12/16 16:30 98.0 66 20 153/94 96 Room Air 12/12/16 12:00 97.9 60 18 144/62 95 Room Air 12/12/16 08:23 97 137/85 Intake and Output 12/12/16 12/13/16 19:00 07:00 Intake Total 740 ml Balance 740 ml Intake Oral 240 ml IV Total 500 ml # Voids 1 1 Laboratory Tests 12/13/16 05:05: White Blood Count 7.6, Red Blood Count 4.83, Hemoglobin 14.8, Hematocrit 43.9, Mean Corpuscular Volume 91, Mean Corpuscular Hemoglobin 30.7, Mean Corpuscular Hemoglobin Concent 33.8, Red Cell Distribution Width 12.2, Platelet Count 181, Mean Platelet Volume 9.0, Neutrophils (%) (Auto) 58.4, Lymphocytes (%) (Auto) 32.0, Monocytes (%) (Auto) 8.1, Eosinophils (%) (Auto) 0.9, Basophils (%) (Auto ) 0.6, Sodium Level 139, Potassium Level 3.5, Chloride Level 98, Carbon Dioxide Level 26, Anion Gap 15, Blood Urea Nitrogen 10, Creatinine 0.8, Estimat Glomerular Filtration Rate , Glucose Level 96, Calcium Level 9.2 Height (Feet): 4 Height (Inches): 11.00 Weight (Pounds): 130 General Appearance: no apparent distress EENT: normal ENT inspection Neck: supple Cardiovascular: normal rate Respiratory/Chest: lungs clear Abdomen: normal bowel sounds, non tender, soft Extremities: non-tender ESTRELLITA MARIN Dec 13, 2016 08:11
[2016-12-13] MEDS: Memantine 10mg tab ORAL SCH (10:15)
[2016-12-13] MEDS: Metoprolol 25mg tab ORAL SCH ×2 (10:15→20:44)
[2016-12-13] MEDS: Docusate 100mg cap ORAL SCH ×3 (10:15→18:03)
[2016-12-13] MEDS: Heparin 5000 units/ml inj SUBQ SCH ×2 (10:18→20:46)
[2016-12-13 12:00] VITALS: BP 131/69
--- NOTE | 2016-12-13 14:42 | General Progress Note ---
Assessment/Plan Status: stable Assessment/Plan 1. Dilated CBD and pancreatic duct - GI will plan for EGD and EUS on thursday. cont Zofran PRN. 2. HTN - cont home meds 3. Depression - cont home meds. 4. Dementia - cont home meds. 5. GERD 6. Elevated CA 19-9 Plan: 1. continue current therapy and D/C IVF. Subjective Date patient seen: Dec 13, 2016 Time patient seen: 14:25 Constitutional: Reports: no symptoms HEENT: Reports: no symptoms Cardiovascular: Reports: no symptoms Respiratory: Reports: no symptoms Gastrointestinal/Abdominal: Reports: nausea Genitourinary: Reports: no symptoms Neurologic/Psychiatric: Reports: no symptoms Endocrine: Reports: no symptoms Hematologic/Lymphatic: Reports: no symptoms Allergies: Coded Allergies: No Known Allergies (Unverified , 12/10/16) Subjective She states her nausea has improved today. no fever or chills. awaiting EGD and EUS on thursday. off IVF for now. Objective Last 24 Hour Vital Signs Date Time Temp Pulse Resp B/P Pulse Ox O2 Delivery O2 Flow Rate FiO2 12/13/16 12:00 97.4 59 131/69 12/13/16 10:15 71 140/82 12/13/16 08:00 97.8 70 18 133/76 94 Room Air 12/13/16 03:47 98.4 71 17 140/82 95 Room Air 12/12/16 23:56 97.9 66 19 136/78 94 Room Air 12/12/16 22:11 77 153/94 12/12/16 20:00 98.5 75 18 149/85 94 Room Air 12/12/16 16:30 98.0 66 20 153/94 96 Room Air Intake and Output 12/12/16 12/13/16 19:00 07:00 Intake Total 740 ml Balance 740 ml Intake Oral 240 ml IV Total 500 ml # Voids 1 1 Laboratory Tests 12/13/16 05:05: White Blood Count 7.6, Red Blood Count 4.83, Hemoglobin 14.8, Hematocrit 43.9, Mean Corpuscular Volume 91, Mean Corpuscular Hemoglobin 30.7, Mean Corpuscular Hemoglobin Concent 33.8, Red Cell Distribution Width 12.2, Platelet Count 181, Mean Platelet Volume 9.0, Neutrophils (%) (Auto) 58.4, Lymphocytes (%) (Auto) 32.0, Monocytes (%) (Auto) 8.1, Eosinophils (%) (Auto) 0.9, Basophils (%) (Auto ) 0.6, Sodium Level 139, Potassium Level 3.5, Chloride Level 98, Carbon Dioxide Level 26, Anion Gap 15, Blood Urea Nitrogen 10, Creatinine 0.8, Estimat Glomerular Filtration Rate , Glucose Level 96, Calcium Level 9.2 Height (Feet): 4 Height (Inches): 11.00 Weight (Pounds): 130 General Appearance: no apparent distress, alert Neck: non-tender, normal alignment, supple Cardiovascular: normal peripheral pulses, normal rate, regular rhythm Respiratory/Chest: chest wall non-tender, lungs clear, normal breath sounds, no respiratory distress Abdomen: normal bowel sounds, non tender, soft Extremities: normal range of motion, non-tender Edema: no edema noted Arm (L), no edema noted Arm (R), no edema noted Leg (L), no edema noted Leg (R), no edema noted Pedal (L), no edema noted Pedal (R), no edema noted Generalized Skin: warm/dry Lymphatic: normal anterior cervical (L), normal anterior cervical (R), normal axillary (L), normal axillary (R), normal inguinal (L), normal inguinal (R), normal other, normal posterior cervical (L), normal posterior cervical (R), normal submandibular (L), normal submandibular (R), normal supraclavicular (L), normal supraclavicular (R) DEIRDRE ARMENDARIZ Dec 13, 2016 14:42
[2016-12-13 16:00] VITALS: BP 135/89
[2016-12-13] MEDS ORDERED: Miralax 17gm pkt ORAL PRN (18:15)
[2016-12-13 20:00] VITALS: BP 133/77
[2016-12-13] MEDS: Famotidine 20 MG/ 2ML VIAL IVP SCH (21:17)
[2016-12-14] VITALS: BP 147/81
[2016-12-14 03:53] VITALS: BP 150/77
--- NOTE | 2016-12-14 07:40 | General Progress Note ---
Assessment/Plan Problem List: (1) dilated CBD and PD (2) elevayed CA 19-9 (3) Constipation ICD Codes: K59.00 - Constipation, unspecified SNOMED: 46956264 (4) GERD (gastroesophageal reflux disease) ICD Codes: K21.9 - Gastro-esophageal reflux disease without esophagitis SNOMED: 399451609 (5) Abdominal pain ICD Codes: R10.9 - Unspecified abdominal pain SNOMED: 43800722 (6) Vomiting ICD Codes: R11.10 - Vomiting, unspecified SNOMED: 992735103 Qualifiers: Qualified Codes: R11.2 - Nausea with vomiting, unspecified (7) S/P laparoscopic fundoplication ICD Codes: Z98.890 - Other specified postprocedural states SNOMED: 01983091, 48082908, 140818012 Assessment/Plan plan EGD/EUS on Thursday Subjective ROS Limited/Unobtainable: Yes Allergies: Coded Allergies: No Known Allergies (Unverified , 12/10/16) Subjective no event Objective Last 24 Hour Vital Signs Date Time Temp Pulse Resp B/P Pulse Ox O2 Delivery O2 Flow Rate FiO2 12/14/16 03:53 98.2 62 18 150/77 98 Room Air 12/14/16 00:00 97.7 63 20 147/81 95 Room Air 12/13/16 20:44 72 135/75 12/13/16 20:00 98.2 61 18 133/77 94 Room Air 12/13/16 16:00 97.9 18 135/89 96 Room Air 12/13/16 12:00 97.4 59 131/69 12/13/16 10:15 71 140/82 12/13/16 08:00 97.8 70 18 133/76 94 Room Air Intake and Output 12/13/16 12/14/16 19:00 07:00 Intake Total 500 ml 200 ml Balance 500 ml 200 ml Intake Oral 500 ml 200 ml # Voids 2 4 Height (Feet): 4 Height (Inches): 11.00 Weight (Pounds): 130 General Appearance: alert EENT: normal ENT inspection Neck: supple Cardiovascular: normal rate Respiratory/Chest: lungs clear Abdomen: normal bowel sounds, non tender, soft Extremities: non-tender ESTRELLITA MARIN Dec 14, 2016 07:39
[2016-12-14 07:43] VITALS: BP 139/80
[2016-12-14] MEDS: Memantine 10mg tab ORAL SCH (08:43)
[2016-12-14] MEDS: Docusate 100mg cap ORAL SCH ×3 (08:43→18:01)
[2016-12-14] MEDS: Heparin 5000 units/ml inj SUBQ SCH ×2 (08:44→20:50)
[2016-12-14] MEDS: Metoprolol 25mg tab ORAL SCH ×2 (08:45→21:26)
[2016-12-14 12:03] VITALS: BP 96/63
[2016-12-14 16:11] VITALS: BP 139/79
[2016-12-14 20:07] VITALS: BP 139/92
[2016-12-14] MEDS: Famotidine 20 MG/ 2ML VIAL IVP SCH (21:26)
--- NOTE | 2016-12-14 23:00 | General Progress Note ---
Assessment/Plan Status: stable Assessment/Plan 1. Dilated CBD and pancreatic duct - GI will plan for EGD and EUS on thursday. cont Zofran PRN. NPO after midnight. 2. HTN - cont home meds 3. Depression - cont home meds. 4. Dementia - cont home meds. 5. GERD 6. Elevated CA 19-9 . Subjective Date patient seen: Dec 14, 2016 Time patient seen: 10:45 Constitutional: Reports: no symptoms HEENT: Reports: no symptoms Cardiovascular: Reports: no symptoms Respiratory: Reports: no symptoms Gastrointestinal/Abdominal: Reports: no symptoms Genitourinary: Reports: no symptoms Neurologic/Psychiatric: Reports: no symptoms Endocrine: Reports: no symptoms Hematologic/Lymphatic: Reports: no symptoms Allergies: Coded Allergies: No Known Allergies (Unverified , 12/10/16) Subjective She states her nausea has improved. no fever or chills. awaiting EGD and EUS on thursday. Objective Last 24 Hour Vital Signs Date Time Temp Pulse Resp B/P Pulse Ox O2 Delivery O2 Flow Rate FiO2 12/14/16 21:26 71 139/92 12/14/16 20:07 98.1 71 18 139/92 95 Room Air 12/14/16 16:11 97.9 70 18 139/79 95 Room Air 12/14/16 12:03 97.0 74 18 96/63 96 Room Air 12/14/16 08:45 58 139/80 12/14/16 07:43 98.2 58 18 139/80 Room Air 12/14/16 03:53 98.2 62 18 150/77 98 Room Air 12/14/16 00:00 97.7 63 20 147/81 95 Room Air Intake and Output 12/13/16 12/14/16 19:00 07:00 Intake Total 500 ml 200 ml Balance 500 ml 200 ml Intake Oral 500 ml 200 ml # Voids 2 4 Height (Feet): 4 Height (Inches): 11.00 Weight (Pounds): 130 General Appearance: no apparent distress, alert EENT: normal ENT inspection Neck: non-tender, normal alignment, supple Cardiovascular: normal peripheral pulses, normal rate, regular rhythm Respiratory/Chest: chest wall non-tender, lungs clear, normal breath sounds Abdomen: normal bowel sounds, non tender, soft Extremities: normal range of motion, non-tender Edema: no edema noted Arm (L), no edema noted Arm (R), no edema noted Leg (L), no edema noted Leg (R), no edema noted Pedal (L), no edema noted Pedal (R), no edema noted Generalized Neurologic: no motor/sensory deficits, alert, responsive Skin: warm/dry Lymphatic: normal anterior cervical (L), normal anterior cervical (R), normal axillary (L), normal axillary (R), normal inguinal (L), normal inguinal (R), normal other, normal posterior cervical (L), normal posterior cervical (R), normal submandibular (L), normal submandibular (R), normal supraclavicular (L), normal supraclavicular (R) DEIRDRE ARMENDARIZ Dec 14, 2016 23:00
[2016-12-15] VITALS (9 sets, daily range): BP systolic 102–149; BP diastolic 63–89
--- NOTE | 2016-12-15 06:10 | Anethesia Preoperative Eval ---
Anesthesia Pre-op PMH/ROS General Date of Evaluation: Dec 15, 2016 Time of Evaluation: 06:10 Anesthesiologist: karmen ASA Score: ASA 3 Mallampati Score Class I : Soft palate, uvula, fauces, pillars visible Class II: Soft palate, uvula, fauces visible Class III: Soft palate, base of uvula visible Class IV: Only hard plate visible Mallampati Classification: Class II Surgeon: brent Diagnosis: abdominal pain Surgical Procedure: egd/eus Family History: no anesthesia problems Allergies: Coded Allergies: No Known Allergies (Unverified , 12/10/16) Medications: see eMAR Past Medical History Cardiovascular: Reports: HTN, other - coronary stent Gastrointestinal/Genitourinary: Reports: GERD, other - hiatal hernia Neurologic/Psychiatric: Reports: dementia, depression/anxiety, other - decreased hearing acuity, alzheimer's disease Musculoskeletal/Integumentary: Reports: other - back injury Anesthesia Pre-op Phys. Exam Physician Exam Last Vital Signs Date Time Temp Pulse Resp B/P Pulse Ox O2 Delivery O2 Flow Rate FiO2 12/15/16 03:54 98.1 63 17 102/68 96 Room Air Constitutional: NAD Neurologic: CN 2-12 intact Cardiovascular: RRR Respiratory: CTA Gastrointestinal: S/NT/ND Airway Exam Mallampati Score: Class II MO: full Neck: supple TMD: 2fb ROM: full Teeth: intact Anesthesia Pre-op A/P Labs Labs Test 12/13/16 05:05 12/15/16 04:30 White Blood Count 7.6 K/UL (4.8-10.8) 8.2 K/UL (4.8-10.8) Red Blood Count 4.83 M/UL (4.20-5.40) 5.12 M/UL (4.20-5.40) Hemoglobin 14.8 G/DL (12.0-16.0) 16.0 G/DL (12.0-16.0) Hematocrit 43.9 % (37.0-47.0) 46.7 % (37.0-47.0) Mean Corpuscular Volume 91 FL (80-99) 91 FL (80-99) Mean Corpuscular Hemoglobin 30.7 PG (27.0-31.0) 31.3 PG (27.0-31.0) Mean Corpuscular Hemoglobin Concent 33.8 G/DL (32.0-36.0) 34.3 G/DL (32.0-36.0) Red Cell Distribution Width 12.2 % (11.6-14.8) 12.4 % (11.6-14.8) Platelet Count 181 K/UL (150-450) 186 K/UL (150-450) Mean Platelet Volume 9.0 FL (6.5-10.1) 9.2 FL (6.5-10.1) Neutrophils (%) (Auto) 58.4 % (45.0-75.0) 57.3 % (45.0-75.0) Lymphocytes (%) (Auto) 32.0 % (20.0-45.0) 33.0 % (20.0-45.0) Monocytes (%) (Auto) 8.1 % (1.0-10.0) 8.4 % (1.0-10.0) Eosinophils (%) (Auto) 0.9 % (0.0-3.0) 0.6 % (0.0-3.0) Basophils (%) (Auto) 0.6 % (0.0-2.0) 0.7 % (0.0-2.0) Sodium Level 139 mEQ/L (135-145) 143 mEQ/L (135-145) Potassium Level 3.5 mEQ/L (3.4-4.9) 3.2 mEQ/L (3.4-4.9) Chloride Level 98 mEQ/L (98-107) 99 mEQ/L (98-107) Carbon Dioxide Level 26 mEQ/L (20-30) 24 mEQ/L (20-30) Anion Gap 15 (5-15) 20 (5-15) Blood Urea Nitrogen 10 mg/dL (7-23) 10 mg/dL (7-23) Creatinine 0.8 mg/dL (0.5-0.9) 0.8 mg/dL (0.5-0.9) Estimat Glomerular Filtration Rate mL/min (>60) mL/min (>60) Glucose Level 96 mg/dL (74-106) 106 mg/dL (74-106) Calcium Level 9.2 mg/dL (8.6-10.2) 9.6 mg/dL (8.6-10.2) Hematology Test 12/15/16 04:30 White Blood Count Pending Red Blood Count Pending Hemoglobin Pending Hematocrit Pending Mean Corpuscular Volume Pending Mean Corpuscular Hemoglobin Pending Mean Corpuscular Hemoglobin Concent Pending Red Cell Distribution Width Pending Platelet Count Pending Mean Platelet Volume Pending Neutrophils (%) (Auto) Pending Lymphocytes (%) (Auto) Pending Monocytes (%) (Auto) Pending Eosinophils (%) (Auto) Pending Basophils (%) (Auto) Pending Chemistry Test 12/15/16 04:30 Sodium Level Pending Potassium Level Pending Chloride Level Pending Carbon Dioxide Level Pending Blood Urea Nitrogen Pending Creatinine Pending Estimat Glomerular Filtration Rate Pending Glucose Level Pending Calcium Level Pending Risk Assessment & Plan Assessment: abdominal pain Plan: egd/eus Status Change Before Surgery: No Pre-Antibiotics Drug: FIORELLA Raman Dec 15, 2016 06:10
[2016-12-15 06:21] LABS: BASOPHILS % (AUTO) 0.7 % (0.0-2.0); EOSINOPHILS % (AUTO) 0.6 % (0.0-3.0); MEAN CORPUSCULAR HEMOGLOBIN 31.3 PG (27.0-31.0); MEAN CORPUSCULAR HGB CONC 34.3 G/DL (32.0-36.0); MEAN CORPUSCULAR VOLUME 91 FL (80-99); MEAN PLATELET VOLUME 9.2 FL (6.5-10.1); MONOCYTES % (AUTO) 8.4 % (1.0-10.0); NEUTROPHILS % (AUTO) 57.3 % (45.0-75.0); PLATELET COUNT 186 K/UL (150-450); RED BLOOD COUNT 5.12 M/UL (4.20-5.40); RED CELL DISTRIBUTION WIDTH 12.4 % (11.6-14.8); WHITE BLOOD COUNT 8.2 K/UL (4.8-10.8)
[2016-12-15 06:40] LABS: ANION GAP 20 (5-15); CALCIUM 9.6 mg/dL (8.6-10.2); CARBON DIOXIDE 24 mEQ/L (20-30); CHLORIDE 99 mEQ/L (98-107); CREATININE 0.8 mg/dL (0.5-0.9); HEMOLYSIS 10; POTASSIUM 3.2 mEQ/L (3.4-4.9); SODIUM 143 mEQ/L (135-145)
[2016-12-15] MEDS ORDERED: Lidocaine 1% MPF 10mg/ml 5ml ONE (07:30)
[2016-12-15] MEDS ORDERED: NS Irrig 1000ml ONE (07:30)
[2016-12-15] MEDS ORDERED: Propofol 10mg/ml 20ml IV ONE (07:30)
[2016-12-15] MEDS ORDERED: LR 1000ml 1,000 ML IVLG SCH (07:36)
[2016-12-15] MEDS ORDERED: Midazolam 2mg/2ml Inj IVP PRN ×2 (07:45→09:00)
[2016-12-15] MEDS ORDERED: Atropine Inj 1mg/10ml Syr IV PRN ×2 (07:45→09:00)
[2016-12-15] MEDS ORDERED: DiphenhydrAMINE 50mg/ml Inj IVP PRN ×2 (07:45→09:00)
[2016-12-15] MEDS ORDERED: Hydromorphone 0.5mg/0.5ml inj IVP PRN ×2 (07:45→09:00)
[2016-12-15] MEDS ORDERED: NS 550ML IV ONE (08:00)
--- NOTE | 2016-12-15 08:01 | Pre-Procedure Note/Attestation ---
Pre-Procedure Note/Attestation Complete Prior to Procedure Planned Procedure: not applicable Procedure Narrative: EGD/EUS Indications for Procedure Pre-Operative Diagnosis: abd pain, dilated PD and CBD Attestation I attest that I discussed the nature of the procedure; its benefits; risks and complications; and alternatives (and the risks and benefits of such alternatives ), prior to the procedure, with the patient (or the patient's legal brewery representative). I attest that, if there was a reasonable possibility of needing a blood transfusion, the patient (or the patient's legal brewery representative) was given the [facility] standardized written summary, pursuant to the [place] Blood Safety Act ([place] Health and Safety Code # 1645, as amended). I attest that I re-evaluated the patient just prior to the surgery and that there has been no change in the patient's H&P, except as documented below: ESTRELLITA MARIN Dec 15, 2016 08:01
--- NOTE | 2016-12-15 08:47 | Immediate Post-Op Evaluation ---
Immediate Post-Op Evalulation Immediate Post-Op Evalulation Procedure: egd/eus Date of Evaluation: Dec 15, 2016 Time of Evaluation: 09:02 IV Fluids: 0.9 ns Blood Products: none Estimated Blood Loss: negligible Blood Pressure Systolic: 128 Blood Pressure Diastolic: 75 Pulse Rate: 64 Respiratory Rate: 18 O2 Sat by Pulse Oximetry: 99 Temperature (Fahrenheit): 96.7 Pain Score (1-10): 0 Nausea: No Vomiting: No Complications none Patient Status: awake, reacts Hydration Status: adequate Drug: FIORELLA Raman Dec 15, 2016 08:47
[2016-12-15] MEDS: Heparin 5000 units/ml inj SUBQ SCH (09:00)
[2016-12-15] MEDS: Docusate 100mg cap ORAL SCH ×2 (09:00→13:35)
--- NOTE | 2016-12-15 09:04 | 48 Hour Post Anesthesia Eval ---
Post Anesthesia Evaluation Procedure: egd/eus Date of Evaluation: Dec 15, 2016 Time of Evaluation: 09:03 Blood Pressure Systolic: 128 0: 75 Pulse Rate: 67 Respiratory Rate: 18 Temperature (Fahrenheit): 96.7 O2 Sat by Pulse Oximetry: 99 Airway: patent Nausea: No Vomiting: No Pain Intensity: 0 Hydration Status: adequate Cardiopulmonary Status: stable Mental Status/LOC: patient returned to baseline Post-Anesthesia Complications: none Follow-up care needed: N/A FIORELLA BUTTERFIELD Dec 15, 2016 09:04
[2016-12-15] MEDS: Metoprolol 25mg tab ORAL SCH (13:24)
[2016-12-15] MEDS: Memantine 10mg tab ORAL SCH (13:25)
--- NOTE | 2016-12-15 15:45 | Procedure Note ---
DATE OF PROCEDURE: 12/15/2016 SURGEON: Mumtaz Burton M.D. ANESTHESIOLOGIST: Farideh Forrest M.D. PROCEDURE: Upper endoscopy with biopsy and endoscopic ultrasound. INSTRUMENT: Olympus adult upper endoscope. INDICATION: Dilated common bile duct, abdominal pain. REASON FOR PROCEDURE: The procedure, risks, benefits, and possible consequences, including hemorrhage, aspiration, perforation and infection, and alternative treatments, were explained to the patient/legal guardian by Dr. Mumtaz Burton and the patient/legal guardian understood and accepted these risks. DESCRIPTION OF PROCEDURE: After informed consent was obtained and the patient was adequately sedated, Olympus upper endoscope was advanced mouth into the second portion of the duodenum and retroflexion maneuver was performed in the of the stomach. The patient had evidence of prior hiatal hernia surgery. There is one retained sutures left in the stomach with some edema and erythema around the suture. The distal esophagus was mildly dilated. There was actually an ulcer seen right at the GE junction. The patient has no evidence of hiatal hernia. In the stomach, there was diffuse gastritis. Random biopsy from antrum was obtained to rule out H. pylori infection. At this time, the upper endoscope was retrieved and EUS scope was introduced. The patient has some atrophy of the pancreatic body and tail. Pancreatic duct was normal and the body measured roughly about 2 mm. Then, scope was advanced into the duodenal bulb, second portion of the duodenum and pancreatic head were examined. Common bile duct was significantly dilated to about maximum diameter of 15 millimeter in size and as we get closer to the ampulla with assuring to about 6 mm in size. Pancreatic was also mildly dilated to about 5 mm in size of the head of the pancreas. The patient is status post cholecystectomy. There was an area in the distal common bile duct, which is suspicious for either calcification outside the common bile duct versus sludge in the common bile duct was very hard to determine, but there is definite shadowing in that area with calcification in that area. I personally think this is most probably a sludge in the distal common bile duct. Although, the calcification and the tissue around it can also be a possibility. No obvious mass was seen. At this time, the scope was retrieved and procedure was terminated. SUMMARY OF FINDINGS: 1. Distal esophageal ulceration. 2. Persistent hiatal hernia. 3. Retained suture in the proximal body of the stomach. 4. Diffuse gastritis status post biopsy. 5. Severe dilated common bile duct to about 15 millimeter. 6. Dilated pancreatic duct to about 5 mm. 7. Questionable sludge in the distal common bile duct with calcification of the parenchymal tissue around the common bile duct. RECOMMENDATIONS: The patient to be started on PPI daily. Reflux measures. Follow biopsy results. The patient most probably will benefit from endoscopic retrograde cholangiopancreatography given the patient was admitted with abdominal pain, has a dilated common bile duct and pancreatic duct. Under the questionable stone in the distal common bile duct. So the patient most probably will benefit from endoscopic retrograde cholangiopancreatography, we will discuss with the family and primary care physician. I want to thank, Dr. Santos, for this kind referral. Mumtaz Burton M.D. DR: JESSE JOB#: [id number] CC: Andrew Santos M.D.; Fax#: [phone]
[2016-12-15] MEDS ORDERED: Tubing IV Secondary IV ONE (16:54)
--- NOTE | 2016-12-15 20:08 | Endoscopy Procedure Note ---
Endoscopy Procedure Note Indication for Procedure: abd pain Procedures Performed: EGD, other - EUS Operative Findings/Diagnosis: HH, esoph ulcer, dilated CBD Specimen: yes Pt Tolerated Procedure Well: Yes Estimated Blood Loss: none Anesthesiologist: brie smyth Anesthesia: MAC Implant(s) used?: No 50 yrs or older w/o bx or poly: Not Applicable 10yrs. F/U not recommended: Not Applicable ESTRELLITA MARIN Dec 15, 2016 20:08
--- NOTE | 2016-12-16 08:01 | Discharge Summary ---
DATE OF ADMISSION: 12/10/2016 DATE OF DISCHARGE: 12/15/2016 HOSPITAL COURSE: This is an 86-year-old [place]ian female, who was brought in from assisted living for complaint of nausea and vomiting a few days prior to admission. The patient was started on Zofran and as inpatient and her nausea and vomiting improved. The patient also had abdominal pain and constipation which improved while in the hospital. She had abdominal CT done showing dilated common bile duct and pancreatic duct. Gastrointestinal was consulted and the patient had esophagogastroduodenoscopy and endoscopic ultrasound done showed only sludges in the pancreatic duct and no tumor. Per gastrointestinal, the patient will be discharged home and will be followed up in a week for endoscopic retrograde cholangiopancreatography and in order to clean the sludge in the pancreatic duct. DISCHARGE DIAGNOSES: 1. Dilated common bile duct and pancreatic duct, secondary to sludges in the pancreatic duct. 2. Hypertension. 3. Depression. 4. Dementia. 5. Gastroesophageal reflux disease. 6. Elevated CA 19-9. DISCHARGE MEDICATIONS: Acetaminophen 500 mg q.6 h. p.r.n. for fever, headache, or mild pain, Norvasc 5 mg daily, vitamin D3 50,000 units weekly, nightly, 15 mg b.i.d., Lexapro 15 mg nightly, Pepcid 20 mg b.i.d., folic acid 1 mg daily, Lamictal 25 mg two tablets nightly, Linzess 145 mcg daily, Mobic 7.5 mg daily, Namenda XR 14 mg daily, metoprolol tartrate 25 mg q.12 hours, Pataday 2.5 mL daily, pravastatin 40 mg daily, and trazodone 50 mg at bedtime. DISPOSITION: The patient will be discharged back to assisted living called [facility]. The patient will be followed up in a week by the gastrointestinal for ERCP as an outpatient. Andrew Santos M.D. DR: SIVA JOB#: [id number] CC:
--- NOTE | 2016-12-21 09:19 | Cardiology Report ---
APPROVED REPORT EKG Measurement Heart [id number] Normal sinus rhythm Low voltage QRS Nonspecific T wave abnormality Abnormal ECG
== END 2016-12-15 16:55 | disposition home or self-care (01) | DRG 439 ==
LOC: EDBD 12:46 → EDSEX 13:40 → EMR 13:40 → INTOOBSV 14:20 → OBSVTOIN 14:20 → 4W 14:20 → EDBEDREQ 21:09 → 4W 12-11 02:08
PROC: 0DB68ZX Excision of Stomach, Via Natural or Artificial Opening Endoscopic, Diagnostic (ICD-10-PCS; principal; 2016-12-10)
DX: K86.89 Other specified diseases of pancreas (principal); K22.10 Ulcer of esophagus without bleeding; F03.90 Unspecified dementia, unspecified severity, without behavioral disturbance, psychotic disturbance, mood disturbance, and anxiety; K21.9 Gastro-esophageal reflux disease without esophagitis; I10 Essential (primary) hypertension; F32.9 Major depressive disorder, single episode, unspecified; E78.5 Hyperlipidemia, unspecified; M19.90 Unspecified osteoarthritis, unspecified site; K29.70 Gastritis, unspecified, without bleeding; K44.9 Diaphragmatic hernia without obstruction or gangrene; K83.8 Other specified diseases of biliary tract; Z98.890 Other specified postprocedural states; K59.00 Constipation, unspecified
CPT/HCPCS: 36415; 74176; 74181; 80048; 80053; 81003; 82550; 82553; 83690; 84484; 85025; 85610; 85730; 86301; 87081; 93005; 94003; 94150; 96361; 96372; 96376; J2405

== ENCOUNTER 2017-01-09 06:22 | Day surgery (SDC) | payer MEDICARE, OTHER ==
[2017-01-09] VITALS (8 sets, daily range): BP systolic 117–148; BP diastolic 63–92
[~2017-01-09] VITALS: Ht 149.9 cm; Wt 61.2 kg
[~2017-01-09 06:22] MED LIST: CICLOPIROX15 GM TP; FOLIC ACID1 MG ORAL; LAMICTAL25 MG ORAL; LEXAPRO10 MG ORAL; LINZESS145 MCG PO; METOPROLOL TART25 MG ORAL; MOBIC7.5 MG ORAL; NAMENDA XR14 MG PO; NORVASC5 MG ORAL; PATADAY2.5 ML OP; PENLAC6.6 M1 TP; PEPCID20 MG ORAL; PRAVACHOL20 MG ORAL; PRAVACHOL40 MG ORAL; SLOW PO; TRAZODONE HCL50 MG ORAL; TYLENOL EXTRA500 MG ORAL; VITAMIN D350000 UNIT PO; [UNRECOGNIZED DRUG - OTHER] TP
--- NOTE | 2017-01-09 06:23 | Anethesia Preoperative Eval ---
Anesthesia Pre-op PMH/ROS General Date of Evaluation: Jan 09, 2017 Time of Evaluation: 06:19 Anesthesiologist: karmen ASA Score: ASA 3 Mallampati Score Class I : Soft palate, uvula, fauces, pillars visible Class II: Soft palate, uvula, fauces visible Class III: Soft palate, base of uvula visible Class IV: Only hard plate visible Mallampati Classification: Class II Surgeon: brent Diagnosis: dilated common bile duct Surgical Procedure: ercp Anesthesia History: none Social History: smoking - nonsmoker Family History: no anesthesia problems Allergies: Coded Allergies: No Known Allergies (Unverified , 12/10/16) Medications: see eMAR Past Medical History Cardiovascular: Reports: CAD, HTN, other - coronary stent Gastrointestinal/Genitourinary: Reports: GERD, other - hiatal hernia, constipation, Neurologic/Psychiatric: Reports: dementia, depression/anxiety, other - decreased hearing PSxH Narrative: coronary stent Anesthesia Pre-op Phys. Exam Physician Exam Constitutional: NAD Neurologic: CN 2-12 intact Cardiovascular: RRR Respiratory: CTA Gastrointestinal: S/NT/ND Airway Exam Mallampati Score: Class II MO: full Neck: supple TMD: 2fb ROM: limited Teeth: intact Anesthesia Pre-op A/P Labs Labs Test 01/09/17 07:15 White Blood Count 6.0 K/UL (4.8-10.8) Red Blood Count 4.74 M/UL (4.20-5.40) Hemoglobin 14.7 G/DL (12.0-16.0) Hematocrit 43.4 % (37.0-47.0) Mean Corpuscular Volume 92 FL (80-99) Mean Corpuscular Hemoglobin 31.0 PG (27.0-31.0) Mean Corpuscular Hemoglobin Concent 33.9 G/DL (32.0-36.0) Red Cell Distribution Width 12.3 % (11.6-14.8) Platelet Count 201 K/UL (150-450) Mean Platelet Volume 8.8 FL (6.5-10.1) Neutrophils (%) (Auto) 56.7 % (45.0-75.0) Lymphocytes (%) (Auto) 31.2 % (20.0-45.0) Monocytes (%) (Auto) 8.9 % (1.0-10.0) Eosinophils (%) (Auto) 2.7 % (0.0-3.0) Basophils (%) (Auto) 0.5 % (0.0-2.0) Prothrombin Time 10.1 SEC (9.30-11.50) Prothromb Time International Ratio 1.0 (0.9-1.1) Activated Partial Thromboplast Time 30 SEC (23-33) Sodium Level 140 mEQ/L (135-145) Potassium Level 4.0 mEQ/L (3.4-4.9) Chloride Level 103 mEQ/L (98-107) Carbon Dioxide Level 26 mEQ/L (20-30) Anion Gap 11 (5-15) Blood Urea Nitrogen 14 mg/dL (7-23) Creatinine 0.9 mg/dL (0.5-0.9) Estimat Glomerular Filtration Rate mL/min (>60) Glucose Level 106 mg/dL (74-106) Calcium Level 9.5 mg/dL (8.6-10.2) Total Bilirubin 0.7 mg/dL (0.0-1.2) Aspartate Amino Transf (AST/SGOT) 30 U/L (5-40) Alanine Aminotransferase (ALT/SGPT) 22 U/L (3-33) Alkaline Phosphatase 61 U/L (35-104) Total Protein 6.5 g/dL (6.6-8.7) Albumin 4.2 g/dL (3.5-5.2) Globulin 2.3 g/dL Albumin/Globulin Ratio 1.8 (1.0-2.7) Amylase Level 67 U/L (10-110) Lipase 30 U/L (< 60) Studies Pre-op Studies: EKG - nsr low voltage Risk Assessment & Plan Assessment: asa3 Plan: mac Status Change Before Surgery: No Pre-Antibiotics Drug: FIORELLA Raman Jan 09, 2017 06:23
[2017-01-09 07:28] LABS: BASOPHILS % (AUTO) 0.5 % (0.0-2.0); EOSINOPHILS % (AUTO) 2.7 % (0.0-3.0); LYMPHOCYTES % (AUTO) 31.2 % (20.0-45.0); MEAN CORPUSCULAR HGB CONC 33.9 G/DL (32.0-36.0); MEAN CORPUSCULAR VOLUME 92 FL (80-99); MEAN PLATELET VOLUME 8.8 FL (6.5-10.1); MONOCYTES % (AUTO) 8.9 % (1.0-10.0); NEUTROPHILS % (AUTO) 56.7 % (45.0-75.0); PLATELET COUNT 201 K/UL (150-450); RED BLOOD COUNT 4.74 M/UL (4.20-5.40); RED CELL DISTRIBUTION WIDTH 12.3 % (11.6-14.8)
[2017-01-09 07:41] LABS: ALANINE AMINOTRANSFERASE 22 U/L (3-33); ALBUMIN/GLOBULIN RATIO 1.8 (1.0-2.7); AMYLASE 67 U/L (10-110); ANION GAP 11 (5-15); ASPARTATE AMINO TRANSFERASE 30 U/L (5-40); CALCIUM 9.5 mg/dL (8.6-10.2); CARBON DIOXIDE 26 mEQ/L (20-30); CHLORIDE 103 mEQ/L (98-107); CREATININE 0.9 mg/dL (0.5-0.9); HEMOLYSIS 3; LIPASE 30 U/L (< 60); SODIUM 140 mEQ/L (135-145); TOTAL PROTEIN 6.5 g/dL (6.6-8.7)
[2017-01-09] MEDS ORDERED: REMERON15 MG ORAL (07:45)
[2017-01-09 07:51] LABS: PROTHROMBIN TIME 10.1 SEC (9.30-11.50)
[2017-01-09] MEDS ORDERED: Lidocaine 1% MPF 10mg/ml 5ml ONE (08:00)
[2017-01-09] MEDS ORDERED: Propofol 10mg/ml 20ml IV ONE (08:00)
[2017-01-09] MEDS ORDERED: Hydromorphone 0.5mg/0.5ml inj IVP PRN (08:15)
[2017-01-09] MEDS ORDERED: Midazolam 2mg/2ml Inj IVP PRN (08:15)
[2017-01-09] MEDS ORDERED: Atropine Inj 1mg/10ml Syr IV PRN (08:15)
[2017-01-09] MEDS ORDERED: DiphenhydrAMINE 50mg/ml Inj IVP PRN (08:15)
--- NOTE | 2017-01-09 08:23 | Short Stay Surgery H&P ---
History of Present Illness History of Present Illness Chief Complaint see recent consult note HPI Neil Cerna is a 86 year old female who was admitted on for Dilated Coman Bile Duct Patient History Allergies: Coded Allergies: No Known Allergies (Unverified , 12/10/16) PAST MEDICAL HISTORY: Past Surgeries: Social History: Medication History Scheduled Amlodipine Besylate (Norvasc), 5 MG ORAL DAILY, (Reported) Cholecalciferol (Vitamin D3) (Vitamin D3), 50,000 UNIT PO ONCE A WEEK, (Reported ) Ciclopirox (Penlac), 6.6 ML TP BEDTIME, (Reported) Ciclopirox Olamine* (Loprox*), 15 GM TP BID, (Reported) Escitalopram Oxalate* (Lexapro*), 15 MG ORAL BEDTIME, (Reported) Famotidine (Pepcid), 20 MG ORAL BID, (Reported) Folic Acid* (Folic Acid*), 1 MG ORAL DAILY, (Reported) Lamotrigine* (Lamictal*), 50 MG ORAL BEDTIME, (Reported) Linaclotide (Linzess), 145 MCG PO AC, (Reported) Meloxicam* (Mobic*), 7.5 MG ORAL DAILY, (Reported) Memantine Hcl (Namenda Xr), 14 MG PO DAILY, (Reported) Metoprolol Tartrate* (Metoprolol Tartrate*), 25 MG ORAL EVERY 12 HOURS, ( Reported) Mirtazapine* (Remeron*), 15 MG ORAL BEDTIME, (Reported) Pravastatin Sodium (Pravachol), 40 MG ORAL DAILY, (Reported) Trazodone Hcl* (Desyrel*), 50 MG ORAL BEDTIME, (Reported) Scheduled PRN Acetaminophen* (Tylenol Extra Strength*), 500 MG ORAL Q6H PRN for Fever/Headache /Mild Pain, (Reported) Miscellaneous Medications Olopatadine Hcl (Pataday), 2.5 ML OP, (Reported) Discontinued Medications Acetic Acid/Resor/Khanh Acid (Fungi-Nail Tincture), 30 ML TP BID, (Reported) Discontinued Reason: Pt stopped taking med Physical Exam Vital Signs Last Vital Signs Date Time Temp Pulse Resp B/P Pulse Ox O2 Delivery O2 Flow Rate FiO2 01/09/17 07:25 97.3 69 20 126/92 97 Room Air Labs Laboratory Tests Test 01/09/17 07:15 White Blood Count 6.0 K/UL (4.8-10.8) Red Blood Count 4.74 M/UL (4.20-5.40) Hemoglobin 14.7 G/DL (12.0-16.0) Hematocrit 43.4 % (37.0-47.0) Mean Corpuscular Volume 92 FL (80-99) Mean Corpuscular Hemoglobin 31.0 PG (27.0-31.0) Mean Corpuscular Hemoglobin Concent 33.9 G/DL (32.0-36.0) Red Cell Distribution Width 12.3 % (11.6-14.8) Platelet Count 201 K/UL (150-450) Mean Platelet Volume 8.8 FL (6.5-10.1) Neutrophils (%) (Auto) 56.7 % (45.0-75.0) Lymphocytes (%) (Auto) 31.2 % (20.0-45.0) Monocytes (%) (Auto) 8.9 % (1.0-10.0) Eosinophils (%) (Auto) 2.7 % (0.0-3.0) Basophils (%) (Auto) 0.5 % (0.0-2.0) Prothrombin Time 10.1 SEC (9.30-11.50) Prothromb Time International Ratio 1.0 (0.9-1.1) Activated Partial Thromboplast Time 30 SEC (23-33) Sodium Level 140 mEQ/L (135-145) Potassium Level 4.0 mEQ/L (3.4-4.9) Chloride Level 103 mEQ/L (98-107) Carbon Dioxide Level 26 mEQ/L (20-30) Anion Gap 11 (5-15) Blood Urea Nitrogen 14 mg/dL (7-23) Creatinine 0.9 mg/dL (0.5-0.9) Estimat Glomerular Filtration Rate mL/min (>60) Glucose Level 106 mg/dL (74-106) Calcium Level 9.5 mg/dL (8.6-10.2) Total Bilirubin 0.7 mg/dL (0.0-1.2) Aspartate Amino Transf (AST/SGOT) 30 U/L (5-40) Alanine Aminotransferase (ALT/SGPT) 22 U/L (3-33) Alkaline Phosphatase 61 U/L (35-104) Total Protein 6.5 g/dL (6.6-8.7) L Albumin 4.2 g/dL (3.5-5.2) Globulin 2.3 g/dL Albumin/Globulin Ratio 1.8 (1.0-2.7) Amylase Level 67 U/L (10-110) Lipase 30 U/L (< 60) Plan Attestation Are the patient's medical conditions optimized for surgery? ESTRELLITA MARIN Jan 09, 2017 08:23
--- NOTE | 2017-01-09 08:23 | Pre-Procedure Note/Attestation ---
Pre-Procedure Note/Attestation Complete Prior to Procedure Planned Procedure: not applicable Procedure Narrative: ercp Indications for Procedure Pre-Operative Diagnosis: dilated CBD Attestation I attest that I discussed the nature of the procedure; its benefits; risks and complications; and alternatives (and the risks and benefits of such alternatives ), prior to the procedure, with the patient (or the patient's legal entry level sales representative). I attest that, if there was a reasonable possibility of needing a blood transfusion, the patient (or the patient's legal entry level sales representative) was given the [facility] standardized written summary, pursuant to the [place] Blood Safety Act ([place] Health and Safety Code # 1645, as amended). I attest that I re-evaluated the patient just prior to the surgery and that there has been no change in the patient's H&P, except as documented below: ESTRELLITA MARIN Jan 09, 2017 08:23
[2017-01-09] MEDS ORDERED: Iothalamate Meglumine 60% 30ML INJ ONE (08:40)
--- NOTE | 2017-01-09 09:12 | Endoscopy Procedure Note ---
Endoscopy Procedure Note Indication for Procedure: dilated CBD Procedures Performed: ERCP Operative Findings/Diagnosis: papillary stenisos Specimen: none Pt Tolerated Procedure Well: Yes Estimated Blood Loss: none Anesthesiologist: eufemia Anesthesia: MAC Implant(s) used?: No 50 yrs or older w/o bx or poly: Not Applicable 10yrs. F/U not recommended: Not Applicable ESTRELLITA MARIN Jan 09, 2017 09:12
[2017-01-09] MEDS ORDERED: Indomethacin 50mg Supp RC ONE (09:25)
--- NOTE | 2017-01-09 09:48 | Immediate Post-Op Evaluation ---
Immediate Post-Op Evalulation Immediate Post-Op Evalulation Procedure: ercp Date of Evaluation: Jan 09, 2017 Time of Evaluation: 09:47 IV Fluids: 0.9 ns 400ml Blood Products: none Estimated Blood Loss: negligible Blood Pressure Systolic: 141 Blood Pressure Diastolic: 63 Pulse Rate: 65 Respiratory Rate: 18 O2 Sat by Pulse Oximetry: 98 Temperature (Fahrenheit): 98.3 Pain Score (1-10): 0 Nausea: No Vomiting: No Complications none Patient Status: awake, reacts, patent Hydration Status: adequate Drug: FIORELLA Raman Jan 09, 2017 09:48
--- NOTE | 2017-01-09 09:58 | 48 Hour Post Anesthesia Eval ---
Post Anesthesia Evaluation Procedure: ercp Date of Evaluation: Jan 09, 2017 Time of Evaluation: 09:57 Blood Pressure Systolic: 148 0: 63 Pulse Rate: 65 Respiratory Rate: 18 Temperature (Fahrenheit): 98.3 O2 Sat by Pulse Oximetry: 98 Airway: patent Nausea: No Vomiting: No Pain Intensity: 0 Hydration Status: adequate Cardiopulmonary Status: stable Mental Status/LOC: patient returned to baseline Post-Anesthesia Complications: none Follow-up care needed: N/A FIORELLA BUTTERFIELD Jan 09, 2017 09:58
--- NOTE | 2017-01-09 12:15 | Procedure Note ---
DATE OF PROCEDURE: 01/09/2017 SURGEON: Mumtaz Burton M.D. PROCEDURE: ERCP with sphincterotomy and balloon sweep. ANESTHESIOLOGIST: Farideh Mota M.D. INSTRUMENT: Olympus adult flexible . 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 REASON FOR PROCEDURE: The procedure, risks, benefits, and possible consequences, including hemorrhage, aspiration, perforation and infection, and alternative treatments, were explained to the patient/legal guardian by Dr. Mumtaz Burton and the patient/legal guardian understood and accepted these risks. PROCEDURE: After informed consent was obtained and the patient was adequately sedated was advanced from the mouth into the second portion of duodenum. The patient had a periampullary diverticulum. Using a sphincterotome, common bile duct was selectively cannulated. Initial cholangiogram showed dilated common bile duct, roughly about maybe 18 mm in size. There was tapering of the duct to the ampulla suggestive of papillary stenosis. Then over a guidewire using a sphincterotome, 95% sphincterotomy was performed. Lots of dark bile was extracted from the common bile duct. 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 Then, we used a balloon to sweep the duct multiple times and to perform balloon occlusion cholangiogram. Some sludge was removed from distal common bile duct. No obvious large stone. Post the sphincterotomy, a balloon cholangiogram showed no further filling defect. The flow of contrast was great from the common bile duct into the duodenum, so no stent was placed at this time. The patient tolerated the procedure very well without any complication. SUMMARY FINDINGS: 1. 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 2. Severe dilated common bile duct to about 18 mm. 3. Periampullary diverticulum. 4. Distal common bile duct sludge. RECOMMENDATIONS: The patient to be observed in the recovery. If pain-free to be discharged back to the intermediate, follow as an outpatient. I want to thank, Dr. Santos, for this kind referral. Mumtaz Burton M.D. DR: CLAU JOB#: [id number] CC: Andrew Santos M.D.; Fax#: [phone]
--- NOTE | 2017-01-09 14:00 | Diagnostic Imaging Report ---
Indication: Abdominal pain. ERCP. Findings: Fluoroscopically captured images of the right upper quadrant of the abdomen demonstrate an endoscope with cannulation of the common bile duct and injection of contrast material. CBD was cannulated with contrast injected demonstrating a moderately dilated common bile duct. Extraction balloon and sweep noted. Impression: ERCP as above
== END 2017-01-09 12:45 | disposition home or self-care (01) ==
LOC: GAS 06:22
DX: K83.8 Other specified diseases of biliary tract (principal); K83.1 Obstruction of bile duct; I25.10 Atherosclerotic heart disease of native coronary artery without angina pectoris; I10 Essential (primary) hypertension; Z95.5 Presence of coronary angioplasty implant and graft; K21.9 Gastro-esophageal reflux disease without esophagitis; K44.9 Diaphragmatic hernia without obstruction or gangrene; F03.90 Unspecified dementia, unspecified severity, without behavioral disturbance, psychotic disturbance, mood disturbance, and anxiety; F32.9 Major depressive disorder, single episode, unspecified; F41.9 Anxiety disorder, unspecified; H91.90 Unspecified hearing loss, unspecified ear; K59.00 Constipation, unspecified
CPT/HCPCS: 36415; 43262; 43264; 74328; 76000; 80053; 82150; 83690; 85025; 85610; 85730; 93005; J2704; Q9961; 94003; 94150